=== PATIENT | female | born 1990 | race African-American/Black ===

== ENCOUNTER → 2016-09-27 | Outpatient (CLI) | payer OTHER ==
--- NOTE | 2016-09-27 09:28 | US ---
EXAMINATION TYPE: US abdomen complete DATE OF EXAM: 09/27/2016 9:09 AM COMPARISON: NONE CLINICAL HISTORY: US. Abdominal pain, GERD EXAM MEASUREMENTS: Liver Length: 15.4 cm Gallbladder Wall: 0.2 cm CBD: 0.4 cm Spleen: 9.0 cm Right Kidney: 11.2 x 4.0 x 5.7 cm Left Kidney: 10.5 x 4.3 x 5.2 cm ANATOMY: TECHNOLOGIST IMPRESSION: Limited due to bowel gas and patient body habitus. Pancreas: Obscured by bowel gas, portions visualized appear within normal limits Liver: Portions visualized appear within normal limits Gallbladder: Obscured by overlying bowel gas, portions visualized appear within normal limits Evidence for sonographic Patel's sign: no CBD: appear within normal limits Spleen: appear within normal limits Right Kidney: appear within normal limits Left Kidney: appear within normal limits Upper IVC: portions visualized appear within normal limits Abd Aorta: portions visualized appear within normal limits IMPRESSION: Limited study demonstrating no acute abnormality. Normal Values: Liver Length: < 16cm wnl, 17-18cm upper limits, >18cm enlarged Spleen Length = < 13cm Renal Length = 9 - 12cm GB Wall: < 0.3cm CBD: < 0.6cm or < 1.0cm post cholecystectomy
--- NOTE | 2016-09-27 10:11 | FL ---
EXAMINATION TYPE: FL UGI DATE OF EXAM ORDERED: 09/27/2016 9:53 AM HISTORY: Heartburn and reflux. COMPARISON: None. FINDINGS: Esophagus stent well aerated band without evidence of obstructing or constricting disease. There is no significant reflux. There is no evidence of hiatal hernia. Stomach contour is normal. There is no fixed filling defect or handy ulceration. The duodenal cap and sweep are normal. IMPRESSION: NORMAL AIR-CONTRAST UPPER GI SERIES.
== END | disposition home or self-care (01) ==
LOC: RADUSWWP 08:26
PROVIDERS: ATTEND Family Medicine
DX: R10.9 Unspecified abdominal pain (principal); K21.9 Gastro-esophageal reflux disease without esophagitis
CPT/HCPCS: 74240; 76700

== ENCOUNTER → 2016-11-15 | Outpatient (CLI) | payer OTHER ==
[2016-11-15 17:51] LABS: Appearance,CSF Clear
[2016-11-18 11:44] LABS: Lyme Specimen Source Not Provided
== END | disposition home or self-care (01) ==
LOC: LABWHC1 11:42
PROVIDERS: ATTEND Psychiatry & Neurology Pain Medicine
DX: R90.82 White matter disease, unspecified (principal); R42 Dizziness and giddiness; H53.8 Other visual disturbances
CPT/HCPCS: 36415; 82040; 82042; 82784; 83873; 83916; 84157; 87476; 88108; 89050

== ENCOUNTER → 2016-12-02 | Outpatient (CLI) | payer OTHER ==
[2016-12-02 08:06] LABS: Blood Urea Nitrogen 11 mg/dL (7-17); Non-African American GFR(MDRD) >60 (>60 ml/min/1.73 sqM)
--- NOTE | 2016-12-02 08:52 | MR ---
EXAMINATION TYPE: MR lumbar spine wo con DATE OF EXAM: 12/02/2016 8:43 AM COMPARISON: NONE HISTORY: Lumbago TECHNIQUE: T1 and T2 axial and sagittal images of the lumbar spine are submitted. FINDINGS: There is no abnormal signal seen within the visualized spinal cord or paraspinal soft tissu es. Tiny left adrenal nodule likely related to incidental adenoma. At L1-2 there is no disc herniation, degenerative disc disease, canal stenosis, or foraminal encroach ment. At L2-3 there is no disc herniation, degenerative disc disease, canal stenosis, or foraminal encroach ment. At L3-4 there is no disc herniation, degenerative disc disease, canal stenosis, or foraminal encroach ment. At L4-5 there is disc desiccation broad-based central disc protrusion with mild effacement of thecal sac. No foraminal encroachment. At L5-S1 there is no disc herniation, degenerative disc disease, canal stenosis, or foraminal encroac hment. IMPRESSION: 1. Central disc protrusion with mild effacement of thecal sac at L4-L5. No foraminal encroachment.
--- NOTE | 2016-12-02 15:21 | MR ---
MRI of the brain with and without contrast HISTORY: Headaches. TECHNIQUE: T1-weighted sagittal, T2, FLAIR, and diffusion axial, postcontrast T1 axial and coronal vi ews of the brain are submitted. CONTRAST: 20 mL MultiHance COMPARISON: 01/22/2016 FINDINGS: There is no evidence of acute ischemia. The ventricles, basal cisterns, and sulci overlying the co nvexities are consistent with the patient's age. There is no mass effect or enhancing mass. Craniocervical junction maintained. Sella turcica has a normal appearance. No evidence of cerebellopo ntine angle mass. Changes of chronic sinusitis noted. WHITE MATTER: There are 3 less than 5 mm areas of abnormal signal within the white matter. No lesions perpendicular to the ventricular system. No callosal lesions. No enhancing lesions. IMPRESSION: 1. No acute intracranial process. 2. Minimal nonspecific white matter changes can be seen with migraine headaches. Other etiologies inc luding demyelinating process, sarcoidosis, remote microvascular ischemia not entirely excluded.
== END | disposition home or self-care (01) ==
LOC: RADMRIMAIN 07:39
PROVIDERS: ATTEND Nurse Practitioner Acute Care
DX: R90.82 White matter disease, unspecified (principal); M51.26 Other intervertebral disc displacement, lumbar region; M54.5 Low back pain; R42 Dizziness and giddiness
CPT/HCPCS: 82565; 84520; 70553; 72148; A9577

== ENCOUNTER → 2016-12-15 | Outpatient (CLI) | payer OTHER ==
--- NOTE | 2016-12-15 11:55 | XR ---
EXAMINATION TYPE: XR knee complete bilateral DATE OF EXAM ORDERED: 12/15/2016 11:48 AM HISTORY: M25.561/2 knee pain. COMPARISON: None. FINDINGS: Joint spaces are maintained. There is no chondrocalcinosis. No joint effusions are seen. IMPRESSION: NORMAL BILATERAL KNEES.
== END ==
LOC: RADXRMAIN 11:30
PROVIDERS: ATTEND Psychiatry & Neurology Pain Medicine
DX: M25.561 Pain in right knee (principal); M25.562 Pain in left knee

== ENCOUNTER → 2017-10-08 | Outpatient (CLI) | payer OTHER ==
--- NOTE | 2017-10-08 23:37 | MR ---
EXAMINATION TYPE: MR brain wo/w con DATE OF EXAM: 10/08/2017 COMPARISON: 12/02/2016 HISTORY: Weakness TECHNIQUE: Multiplanar, multisequence images of the brain and brainstem is performed without and with IV contras t, utilizing 10 mL intravenous Gadavist . FINDINGS: Ventricles and sulci appear fairly normal. There is no mass effect nor midline shift. There is no sig n of intracranial hemorrhage. The burton and white matter structures have fairly normal signal pattern. There is no evidence of cerebral edema. There are however 3 tiny foci of 3 mm increased signal in the white matter of the left frontal lobe. Brainstem appears normal. Corpus callosum is normal. Sella turcica is normal. There is no evidence of a cortical infarct. Contrast images show no pathologic enhancement. There is no evidence of a chicken sexer ior fossa mass. IMPRESSION: 3 tiny foci of white matter increased signal are unchanged compared to old exam and are o f uncertain and doubtful significance. I do not see evidence for demyelinating disease. Otherwise neg ative exam.
== END | disposition home or self-care (01) ==
LOC: RADMRIMAIN 19:18
PROVIDERS: ATTEND Psychiatry & Neurology Neurology
DX: R90.82 White matter disease, unspecified (principal); Z88.2 Allergy status to sulfonamides; Z88.1 Allergy status to other antibiotic agents
CPT/HCPCS: 70553; A9581

== ENCOUNTER → 2017-10-15 | Outpatient (CLI) | payer OTHER ==
--- NOTE | 2017-10-15 12:29 | US ---
EXAMINATION TYPE: US transvaginal DATE OF EXAM: 10/15/2017 COMPARISON: NONE CLINICAL HISTORY: N94.6 DYSMENORRHEA. Patient states having left side pain, History of right and left side ectopic with right fallopian tube removed TECHNIQUE: Transvaginal (TV) Date of LMP: 09/26/2017, EXAM MEASUREMENTS: Uterus: 8.1 x 4.5 x 4.1 cm Endometrial Stripe: 0.8 cm Right Ovary: 2.4 x 1.7 x 1.5 cm Left Ovary: 3.3 x 2.5 x 2.5 cm 1. Uterus: Anteflexed wnl 2. Endometrium: fluid seen within endometrial canal 3. Right Ovary: follicles seen 4. Left Ovary: complex lesion seen with peripheral vascularity = 2.0 x 1.7 x 1.9 cm Color doppler imaging shows good vascular flow within the ovaries; there is no evidence for ovarian torsion. 5. Bilateral Adnexa: fluid seen adjacent to left ovary 6. Posterior cul-de-sac: free fluid seen IMPRESSION: 1. Complex left ovarian lesion with peripheral vascularity. Small amount of free fluid noted. Clinica l correlation and appropriate follow-up is advised.
== END | disposition home or self-care (01) ==
LOC: RADUSWWP 11:00
PROVIDERS: ATTEND Obstetrics & Gynecology
DX: N83.9 Noninflammatory disorder of ovary, fallopian tube and broad ligament, unspecified (principal)
CPT/HCPCS: 76830

== ENCOUNTER → 2017-12-05 | Outpatient (CLI) | payer OTHER ==
[2017-12-05 18:33] LABS: Total Protein,CSF 33 mg/dL (12-60)
[2017-12-05 19:59] LABS: CSF Tube Number 4
[2017-12-05 20:00] LABS: Appearance,CSF Clear; CSF Tube Volume 2; Nucleated Cells, CSF 1 u/L (0-5); Red Blood Cell,CSF 0 u/L (0-10)
== END | disposition home or self-care (01) ==
LOC: LABWHC1 10:05
PROVIDERS: ATTEND Physician Assistant
DX: R51 Headache (principal); R42 Dizziness and giddiness; R90.82 White matter disease, unspecified
CPT/HCPCS: 36415; 82040; 82042; 82784; 83873; 83916; 84157; 87476; 89050

== ENCOUNTER 2018-01-29 12:19 | Day surgery (SDC) | payer OTHER ==
[2018-01-23 16:19] VITALS: BMI 38.9
[~2018-01-29 12:19] MED LIST: SODIUM CHLORIDE 0.9% 1,000 ML IV SCH
[2018-01-29] MEDS ORDERED: SODIUM CHLORIDE 0.9% 250 ML IV ONE (12:30)
[2018-01-29 16:28] VITALS: BP 122/76; RESP 16; TEMP 98.2
[2018-01-29 16:30] VITALS: PULSE 78
--- NOTE | 2018-01-29 16:49 | P.PCN ---
Preoperative Diagnosis: History of recurrent syncope twelve-lead ECG Sinus rhythm heart rate 86 beats a minute normal NH narrow QRS normal ST segments normal QT interval Tilt table test Baseline blood pressure 123/74 mmHg Baseline heart rate 82 beats a minute patient was tilted upright at an angle of 70 per impression there was no change in heart rate and blood pressure she complained of dizziness and feeling nauseous and extremely tired. There is no change in heart rate and blood pressure Impression Normal heart rate and blood pressure response to upright tilting No evidence for neurocardiogenic syncope Anesthesia: none Disposition: same day
== END 2018-01-29 15:00 | disposition home or self-care (01) ==
LOC: CATHEP 12:19
PROVIDERS: ATTEND Internal Medicine Clinical Cardiac Electrophysiology
DX: R55 Syncope and collapse (principal); R07.2 Precordial pain; Z88.1 Allergy status to other antibiotic agents; Z88.0 Allergy status to penicillin; Z88.2 Allergy status to sulfonamides
CPT/HCPCS: 81025; 93660

== ENCOUNTER 2018-01-31 06:59 | Day surgery (SDC) | payer OTHER ==
[2018-01-28 15:48] VITALS: BMI 37.3
[~2018-01-31 06:59] MED LIST changes: +CLINDAMYCIN 900 MG in DEXTROSE 5% IN WATER 50 ML IVPB ONE; +DEXAMETHASONE SOD PHOSPHATE 10 MG/ML 1 ML VIAL IV ONE; +HEPARIN SODIUM,PORCINE 5,000 UNIT/ML 1 ML VIAL SQ ONE; +LACTATED RINGERS 1,000 ML IV SCH; +MIDAZOLAM 2 MG/2 ML VIAL IV PRN; +MORPHINE SULFATE 4 MG/ML SYRINGE IV PRN; +ONDANSETRON ODT 4 MG TAB PO ONE; -SODIUM CHLORIDE 0.9% 1,000 ML IV SCH
[2018-01-31] MEDS ORDERED: LIDOCAINE 1% 20 ML VIAL (10MG/ML) FOR IV START INTRADERMA ONE (07:46)
[2018-01-31 07:54] LABS: Glucose,Whole Blood 92 mg/dL (75-99)
[2018-01-31] MEDS ORDERED: LIDOCAINE 1% INJ 10MG/ML (20 ML MDV) ONE (08:35)
[2018-01-31] MEDS ORDERED: ROPIVACAINE 5 MG/ML 30 ML VIAL ONE (08:35)
[2018-01-31] MEDS ORDERED: KETOROLAC 30 MG/ML 1 ML VIAL ONE (08:35)
[2018-01-31] MEDS ORDERED: PROPOFOL 10 MG/ML 20 ML VIAL IV ONE (08:35)
[2018-01-31] MEDS ORDERED: GLYCOPYRROLATE 0.2 MG/ML 2 ML VIAL ONE (08:35)
[2018-01-31] MEDS ORDERED: SUCCINYLCHOLINE CHLORIDE 100 MG/5 ML SYR IV ONE (08:35)
[2018-01-31] MEDS ORDERED: fentaNYL (PF) 50 MCG/ML 2 ML AMP ONE (08:35)
[2018-01-31] MEDS ORDERED: ROCURONIUM BROMIDE 10 MG/ML 10 ML VIAL IV ONE (08:35)
[2018-01-31] MEDS ORDERED: LIDOCAINE 2%-EPI 1:100,000 20 ML VIAL ONE (08:35)
[2018-01-31] MEDS ORDERED: NEOSTIGMINE 1 MG/ML 10 ML VIAL ONE (08:35)
[2018-01-31] MEDS ORDERED: MIDAZOLAM 2 MG/2 ML VIAL ONE (08:35)
[2018-01-31] MEDS ORDERED: LIDOCAINE 2%-EPI 1:100,000 20 ML VIAL SQ ONE ×2 (08:53)
[2018-01-31] MEDS ORDERED: BUPIVACAINE (PF) 0.25% 30 ML VIAL SQ ONE ×2 (08:53)
--- NOTE | 2018-01-31 09:03 | P.ONQ ---
Anesthesiology Proc Note - PNB - Peripheral Nerve Block Performed Bilateral Transversus Abdominis Single Time Out Performed: Yes (809) Procedure Start Time: 08:10 Procedure Stop Time: :20 Indication: Acute Post-Operative Pain, Dx/Pain Location (Abdominal Pain), Requested by physician Sedation Type: Awake Catheter: None Needle Types: On-Q Needle Size: 100mm (4") Needle Gauge: 21 Injectate: Other (see comment) (40ml 0.25% Ropivacaine, 20ml each side) Blood Aspirated: No Pain Paresthesia on Injection Noted: No Resistance on Injection: Normal Events: Uneventful and Well Tolerated
--- NOTE | 2018-01-31 09:12 | P.OP ---
Date of Procedure: 01/31/18 Preoperative Diagnosis: Umbilical hernia Postoperative Diagnosis: Lipoma Procedure(s) Performed: Abdominal wall exploration with removal of lipoma Anesthesia: PAPA Surgeon: Suyapa Coy Estimated Blood Loss (ml): 5 Pathology: other (Lipoma) Condition: stable Disposition: PACU Indications for Procedure: The patient presented with abdominal pain a CT showed what appeared to be incarcerated preperitoneal fat was some fat edema. Operative Findings: There was no evidence of any abdominal wall hernia. There was a 1 cm lipoma, this was the palpable tender area the patient was feeling. Description of Procedure: The patient's taken the operative suite where she is prepped and draped in the usual sterile manner under general endotracheal anesthetic local anesthetic is instilled into the skin and subcutaneous tissues and infraumbilical incision was made small bleeding points are controlled with electrocautery dissection was carried down through the fatty tissue to the hard nodule the patient was describing. This appeared to be a simple lipoma with no extension through the fascia. It was removed. The fat overlying the fascia at the umbilicus was dissected free to allow for palpation. The abdominal wall was thoroughly palpated and there was no evidence of any hernia defects. The skin was then closed with 4-0 Vicryl in a subcuticular manner. Steri-Strips and dressings were applied. She tolerated the procedure without difficulty and was taken recovery room in satisfactory condition. According to or personnel, ARE correct. Plan - Discharge Summary New Discharge Prescriptions: No Action Hydrocodone/Acetaminophen [[place] 10-325] 1 tab PO DAILY PRN PRN Reason: Pain Hydrochlorothiazide [Hydrodiuril] 25 mg PO DAILY Eslicarbazepine Acetate [Aptiom] 400 mg PO BID Butalb/Acetaminophen/Caffeine [Fioricet 50-300-40 mg Capsule] 1 - 2 cap PO Q4HR PRN PRN Reason: Migraine Headache Beclomethasone Dipropionate [Qvar 80 mcg] 1 puff INHALATION DAILY PRN PRN Reason: Shortness Of Breath Discharge Medication List Hydrocodone/Acetaminophen [[place] 10-325] 1 tab PO DAILY PRN 01/12/16 [History] Beclomethasone Dipropionate [Qvar 80 mcg] 1 puff INHALATION DAILY PRN 01/23/18 [ History] Butalb/Acetaminophen/Caffeine [Fioricet 50-300-40 mg Capsule] 1 - 2 cap PO Q4HR PRN 01/23/18 [History] Eslicarbazepine Acetate [Aptiom] 400 mg PO BID 01/23/18 [History] Hydrochlorothiazide [Hydrodiuril] 25 mg PO DAILY 01/23/18 [History] Follow up Appointment(s)/Referral(s): Suyapa Coy DO [Doctor of Osteopathic Medicine] - 2 Weeks Activity/Diet/Wound Care/Special Instructions: Maintain this dressing until Sunday. This made then be removed and you may shower. A light dressing may be used over the incision and the incision is draining or rubbing on your clothing. Ice to the incision for 24 hours. No tub baths for 1 week. Remove the Steri-Strips (a little tapes) in 1 week. Tylenol or Motrin as needed for pain. Discharge Disposition: HOME SELF-CARE
[2018-01-31 09:29] VITALS: TEMP 96.9
[2018-01-31 09:42] LABS: Glucose,Whole Blood 99 mg/dL (75-99)
[2018-01-31 09:43] VITALS: RESP 16
[2018-01-31] MEDS ORDERED: IBUPROFEN 400 MG TAB PO STA (10:44)
[2018-01-31] MEDS ORDERED: IBUPROFEN 200 MG TAB PO ONE (10:44)
[2018-01-31 11:08] VITALS: BP 106/73; PULSE 78
== END 2018-01-31 11:31 | disposition home or self-care (01) ==
LOC: OR 06:59
PROVIDERS: ATTEND Surgery
DX: D17.1 Benign lipomatous neoplasm of skin and subcutaneous tissue of trunk (principal); J45.909 Unspecified asthma, uncomplicated; M19.90 Unspecified osteoarthritis, unspecified site; E11.9 Type 2 diabetes mellitus without complications; G40.909 Epilepsy, unspecified, not intractable, without status epilepticus; Z79.899 Other long term (current) drug therapy; Z88.1 Allergy status to other antibiotic agents; Z88.0 Allergy status to penicillin; Z88.2 Allergy status to sulfonamides; Z88.8 Allergy status to other drugs, medicaments and biological substances
CPT/HCPCS: 11401; 81025; 88302; 64488; J2250; J1644; J1100; J2710; J2001; J3010; J1885; J2795; J0330; J2704

== ENCOUNTER → 2018-02-07 | Outpatient (CLI) | payer OTHER ==
--- NOTE | 2018-02-07 17:16 | XR ---
EXAMINATION TYPE: XR ribs LT w pa chest xray DATE OF EXAM: 02/07/2018 CLINICAL HISTORY: Pain after fall TECHNIQUE: Single frontal view of the chest is obtained. Frontal and oblique views of the left ribs w ere obtained. COMPARISON: None FINDINGS: There is no focal air space opacity, pleural effusion, or pneumothorax seen. The cardiac silhouette size is within normal limits. There is no displaced acute rib fracture or healed callused rib fracture identified. IMPRESSION: No acute cardiopulmonary process. No evidence of pneumothorax. No acute displaced rib fr acture or healed callused rib fracture.
== END | disposition home or self-care (01) ==
LOC: RADXRMAIN 16:48
PROVIDERS: ATTEND Family Medicine
DX: R07.81 Pleurodynia (principal); Z91.81 History of falling

== ENCOUNTER 2018-02-10 16:03 | Emergency (ER) | payer OTHER ==
[2018-02-10 16:08] VITALS: TEMP 97.7
[2018-02-10] MEDS ORDERED: KETOROLAC 30 MG/ML 1 ML VIAL IVP STA (16:41)
[2018-02-10] MEDS ORDERED: ONDANSETRON 4 MG/2 ML VIAL IVP STA (16:41)
[2018-02-10] MEDS ORDERED: SODIUM CHLORIDE 0.9% 1,000 ML IV STA ×2 (16:41)
--- NOTE | 2018-02-10 16:50 | ED ---
Abdominal Pain HPI - General Chief Complaint: Abdominal Pain Stated Complaint: back pain/near syncope Time Seen by Provider: 02/10/18 16:15 Source: patient, RN notes reviewed, old records reviewed Mode of arrival: ambulatory Limitations: no limitations - History of Present Illness Initial Comments: Patient is a 28 year old female with CC of right flank and abd pain.Patient reports she had umibilical hernia surgery 10 days ago, and they found "tissue" which was removed. Pt states she has had this flank pain since then. Patient also relates that she has been hacing dizziness, and a syncopal episode 3 days ago. She denies fevers and chills, reports having nausea vomiting, and diarrhea. - Related Data Home Medications Medication Instructions Recorded Confirmed Hydrocodone/Acetaminophen [[place] 1 tab PO DAILY PRN 01/12/16 02/16/18 10-325] Beclomethasone Dipropionate [Qvar 1 puff INHALATION DAILY PRN 01/23/18 02/16/18 80 mcg] Butalb/Acetaminophen/Caffeine 1 - 2 cap PO Q4HR PRN 01/23/18 02/16/18 [Fioricet 50-300-40 mg Capsule] Eslicarbazepine Acetate [Aptiom] 400 mg PO BID 01/23/18 02/16/18 Hydrochlorothiazide [Hydrodiuril] 25 mg PO DAILY PRN 01/23/18 02/16/18 Allergies Allergy/AdvReac Type Severity Reaction Status Date / Time acetazolamide Allergy Rash/Hives/CHEST Verified 02/16/18 11:00 [From Diamox Sequels] PAIN cephalexin monohydrate Allergy Rash/Hives Verified 02/16/18 11:00 [From Keflex] ciprofloxacin [From Cipro] Allergy Rash/Hives Verified 02/16/18 11:00 ciprofloxacin HCl Allergy Rash/Hives Verified 02/16/18 11:00 [From Cipro] nitrofurantoin Allergy Itching Verified 02/16/18 11:00 [From Macrobid] Penicillins Allergy Rash/Hives Verified 02/16/18 11:00 sulfamethoxazole Allergy Rash/Hives Verified 02/16/18 11:00 [From Bactrim] trimethoprim [From Bactrim] Allergy Rash/Hives Verified 02/16/18 11:00 Review of Systems ROS Statement: Those systems with pertinent positive or pertinent negative responses have been documented in the HPI. ROS Other: All systems not noted in ROS Statement are negative. Past Medical History Past Medical History: Asthma, CVA/TIA, Diabetes Mellitus, Seizure Disorder, Syncope Additional Past Medical History / Comment(s): HX MIGRAINES, "REDUCED SEIZURE THRESHOLD", UNSURE OF LAST SEIZURE, PSEUDO TUMOR CEREBRI, CHRONIC BACK PAIN, POSSIBLE UMBILICAL HERNIA, DIET CONTROLLED DIABETIC History of Any Multi-Drug Resistant Organisms: None Reported Past Surgical History: Section Additional Past Surgical History / Comment(s): tilt table test 01/29/18. right fallopian tube removed, LEFT FALLOPIAN TUBE CLAMPED,. "tissue" removed from abd Past Anesthesia/Blood Transfusion Reactions: Postoperative Nausea & Vomiting ( PONV) Additional Past Anesthesia/Blood Transfusion Reaction / Comment(s): STATES "TROUBLE WAKING UP" Past Psychological History: No Psychological Hx Reported Smoking Status: Never smoker - Past Family History Mother Family Medical History: No Reported History General Exam - General Exam Comments Initial Comments: Well appearing 28 year old female, no distress. Limitations: no limitations General appearance: alert, in no apparent distress Head exam: Present: atraumatic, normocephalic, normal inspection Eye exam: Present: normal appearance, PERRL, EOMI. Absent: scleral icterus, conjunctival injection, periorbital swelling ENT exam: Present: normal exam, mucous membranes moist Neck exam: Present: normal inspection. Absent: tenderness, meningismus, lymphadenopathy Respiratory exam: Present: normal lung sounds bilaterally. Absent: respiratory distress, wheezes, rales, rhonchi, stridor GI/Abdominal exam: Present: soft, normal bowel sounds, other (well appearing incisions over umbilicus). Absent: distended, tenderness, guarding, rebound, rigid Extremities exam: Present: normal inspection, full ROM, normal capillary refill. Absent: tenderness, pedal edema, joint swelling, calf tenderness Back exam: Present: normal inspection Neurological exam: Present: alert, oriented X3, CN II-XII intact Psychiatric exam: Present: normal affect, normal mood Skin exam: Present: warm, dry, intact, normal color. Absent: rash Course Vital Signs 02/10/18 02/10/18 02/10/18 16:04 18:49 19:30 Temperature 97.7 F Pulse Rate 75 68 92 Respiratory 18 20 16 Rate Blood Pressure 126/64 136/58 166/55 O2 Sat by Pulse 99 100 100 Oximetry Medical Decision Making - Medical Decision Making Patient is a 28 year old female with CC of right flank and abd pain.Patient reports she had umibilical hernia surgery 10 days ago, and they found "tissue" which was removed. Pt states she has had this flank pain since then. Patient also relates that she has been hacing dizziness, and a syncopal episode 3 days ago. Patient as given IV fluids, and labs obtained. Labs are unremarkable. Umbilical hernia site appears well, no significant tenderness there. She complains mainly of right sided flank pain. UA shows no significant infection. I discussed that CT shows no changes, but does report some end plate disease over L5. Discussed patient needs to follow up with surgeon and return parameters discussed. - Lab Data Result diagrams: 02/10/18 17:08 02/10/18 17:08 Lab Results 02/10/18 02/10/18 02/10/18 Range/Units 17:08 17:08 17:08 WBC 7.6 (3.8-10.6) k/uL RBC 4.81 (3.80-5.40) m/uL Hgb 12.4 (11.4-16.0) gm/dL Hct 38.4 (34.0-46.0) % MCV 79.9 L (80.0-100.0) fL MCH 25.8 (25.0-35.0) pg MCHC 32.3 (31.0-37.0) g/dL RDW 14.3 (11.5-15.5) % Plt Count 264 (150-450) k/uL Neutrophils % 79 % Lymphocytes % 17 % Monocytes % 2 % Eosinophils % 2 % Basophils % 0 % Neutrophils # 6.0 (1.3-7.7) k/uL Lymphocytes # 1.3 (1.0-4.8) k/uL Monocytes # 0.2 (0-1.0) k/uL Eosinophils # 0.1 (0-0.7) k/uL Basophils # 0.0 (0-0.2) k/uL PT (9.0-12.0) sec INR (<1.2) APTT (22.0-30.0) sec Sodium 142 (137-145) mmol/L Potassium 4.5 (3.5-5.1) mmol/L Chloride 105 (98-107) mmol/L Carbon Dioxide 23 (22-30) mmol/L Anion Gap 14 mmol/L BUN 7 (7-17) mg/dL Creatinine 0.50 L (0.52-1.04) mg/dL Est GFR (CKD-EPI)AfAm >90 (>60 ml/min/1.73 sqM) Est GFR (CKD-EPI)NonAf >90 (>60 ml/min/1.73 sqM) Glucose 114 H (74-99) mg/dL Plasma Lactic Acid Eran (0.7-2.0) mmol/L Calcium 9.5 (8.4-10.2) mg/dL Total Bilirubin 0.2 (0.2-1.3) mg/dL AST 22 (14-36) U/L ALT 27 (9-52) U/L Alkaline Phosphatase 95 (38-126) U/L Total Protein 6.8 (6.3-8.2) g/dL Albumin 3.9 (3.5-5.0) g/dL Amylase 56 (30-110) U/L Lipase 33 (23-300) U/L Urine Color Yellow Urine Appearance Cloudy H (Clear) Urine pH 5.5 (5.0-8.0) Ur Specific [place] 1.017 (1.001-1.035) Urine Protein Negative (Negative) Urine Glucose (UA) Negative (Negative) Urine Ketones Negative (Negative) Urine Blood Negative (Negative) Urine Nitrite Negative (Negative) Urine Bilirubin Negative (Negative) Urine Urobilinogen <2.0 (<2.0) mg/dL Ur Leukocyte Esterase Trace H (Negative) Urine RBC 1 (0-5) /hpf Urine WBC 15 H (0-5) /hpf Ur Squamous Epith Cells 7 H (0-4) /hpf Urine Mucus Few H (None) /hpf Urine HCG, Qual (Not Detectd) 02/10/18 02/10/18 02/10/18 Range/Units 17:08 17:08 17:08 WBC (3.8-10.6) k/uL RBC (3.80-5.40) m/uL Hgb (11.4-16.0) gm/dL Hct (34.0-46.0) % MCV (80.0-100.0) fL MCH (25.0-35.0) pg MCHC (31.0-37.0) g/dL RDW (11.5-15.5) % Plt Count (150-450) k/uL Neutrophils % % Lymphocytes % % Monocytes % % Eosinophils % % Basophils % % Neutrophils # (1.3-7.7) k/uL Lymphocytes # (1.0-4.8) k/uL Monocytes # (0-1.0) k/uL Eosinophils # (0-0.7) k/uL Basophils # (0-0.2) k/uL PT 9.7 (9.0-12.0) sec INR 1.0 (<1.2) APTT 24.4 (22.0-30.0) sec Sodium (137-145) mmol/L Potassium (3.5-5.1) mmol/L Chloride (98-107) mmol/L Carbon Dioxide (22-30) mmol/L Anion Gap mmol/L BUN (7-17) mg/dL Creatinine (0.52-1.04) mg/dL Est GFR (CKD-EPI)AfAm (>60 ml/min/1.73 sqM) Est GFR (CKD-EPI)NonAf (>60 ml/min/1.73 sqM) Glucose (74-99) mg/dL Plasma Lactic Acid Eran 1.3 (0.7-2.0) mmol/L Calcium (8.4-10.2) mg/dL Total Bilirubin (0.2-1.3) mg/dL AST (14-36) U/L ALT (9-52) U/L Alkaline Phosphatase (38-126) U/L Total Protein (6.3-8.2) g/dL Albumin (3.5-5.0) g/dL Amylase (30-110) U/L Lipase (23-300) U/L Urine Color Urine Appearance (Clear) Urine pH (5.0-8.0) Ur Specific [place] (1.001-1.035) Urine Protein (Negative) Urine Glucose (UA) (Negative) Urine Ketones (Negative) Urine Blood (Negative) Urine Nitrite (Negative) Urine Bilirubin (Negative) Urine Urobilinogen (<2.0) mg/dL Ur Leukocyte Esterase (Negative) Urine RBC (0-5) /hpf Urine WBC (0-5) /hpf Ur Squamous Epith Cells (0-4) /hpf Urine Mucus (None) /hpf Urine HCG, Qual Not Detected (Not Detectd) - Radiology Data Radiology results: report reviewed Mild soft tissue thickening and minimal festering and umbilicus likely postsurgical change. No abdominal fluid collection. No noted at L5 have a sacralization and mid disc endplate degenerative changes. Correlate for bertolotti syndrome. Disposition Clinical Impression: Abdominal pain, Nausea, Diarrhea Disposition: HOME SELF-CARE Condition: Good Additional Instructions: Patient has a follow-up with primary care provider. Return to emergency department if any alarming signs or symptoms occur. Take her at home pain medication. Is patient prescribed a controlled substance at d/c from ED?: No When asked, does pt state using other controlled substances?: No If prescribed controlled substance>3 days was MAPS reviewed?: No Referrals: Susu Horner MD [Primary Care Provider] - 1-2 days Time of Disposition: 20:11
[2018-02-10 17:30] LABS: Basophils % (A) 0 %; Eosinophils # (A) 0.1 k/uL (0-0.7); Eosinophils % (A) 2 %; HCT 38.4 % (34.0-46.0); HGB 12.4 gm/dL (11.4-16.0); Lymphocytes # (A) 1.3 k/uL (1.0-4.8); Lymphocytes % (A) 17 %; MCH 25.8 pg (25.0-35.0); MCHC 32.3 g/dL (31.0-37.0); MCV 79.9 fL (80.0-100.0); Mean Platelet Volume 7.2; Monocytes # (A) 0.2 k/uL (0-1.0); Monocytes % (A) 2 %; Neutrophils % (A) 79 %; Platelet Count 264 k/uL (150-450); RBC 4.81 m/uL (3.80-5.40); RDW 14.3 % (11.5-15.5); WBC 7.6 k/uL (3.8-10.6)
[2018-02-10 17:34] LABS: Partial Thromboplastin Time 24.4 sec (22.0-30.0); Prothrombin Time 9.7 sec (9.0-12.0)
[2018-02-10 17:38] LABS: Appearance,Urine Cloudy (Clear); Bilirubin,Urine Negative (Negative); Blood,Urine Negative (Negative); Color,Urine Yellow; Glucose,Urine (UA) Negative (Negative); Ketones,Urine Negative (Negative); Leukocyte Esterase,Urine Trace (Negative); Mucus,Urine Few /hpf; Nitrite,Urine Negative (Negative); PH, Urine 5.5 (5.0-8.0); Protein,Urine Negative (Negative); RBC,Urine 1 /hpf (0-5); Specific Gravity,Urine 1.017 (1.001-1.035); Squamous Epithelial Cell,Urine 7 /hpf (0-4); Urobilinogen,Urine <2.0 mg/dL (<2.0); WBC,Urine 15 /hpf (0-5)
[2018-02-10 17:43] LABS: ALT 27 U/L (9-52); AST 22 U/L (14-36); Albumin 3.9 g/dL (3.5-5.0); Alkaline Phosphatase 95 U/L (38-126); Amylase 56 U/L (30-110); Anion Gap 14 mmol/L; Blood Urea Nitrogen 7 mg/dL (7-17); Calcium 9.5 mg/dL (8.4-10.2); Carbon Dioxide 23 mmol/L (22-30); Chloride 105 mmol/L (98-107); Glucose 114 mg/dL (74-99); Lipase 33 U/L (23-300); Potassium 4.5 mmol/L (3.5-5.1); Sodium 142 mmol/L (137-145); Total Bilirubin 0.2 mg/dL (0.2-1.3); Total Protein 6.8 g/dL (6.3-8.2)
--- NOTE | 2018-02-10 17:55 | XR ---
EXAMINATION TYPE: XR KUB DATE OF EXAM: 02/10/2018 CLINICAL DATA: 27-year-old female with abdominal pain, [facility] COMPARISON: 04/06/2011 FINDINGS: Lung bases are clear. No evidence for free intraperitoneal air. No dilated small bowel or air-fluid levels. Scattered air and stool seen throughout the colon extendi ng distally into the rectum. Only mild stool in the pelvis. Phleboliths in the right side of the pelvis. IMPRESSION: No evidence of bowel obstruction or free intraperitoneal air.
[2018-02-10] MEDS ORDERED: RX INFO: IV CONTRAST WAS GIVEN 1 EACH MISC MISCELLANE PRN (18:15)
[2018-02-10] MEDS ORDERED: MORPHINE SULFATE 4 MG/ML SYRINGE IVP STA (18:19)
--- NOTE | 2018-02-10 19:02 | CT ---
EXAMINATION TYPE: CT abdomen pelvis w con DATE OF EXAM: 02/10/2018 COMPARISON: NONE HISTORY: 27-year-old female Back pain, S/P umbilical surgery TECHNIQUE: Contiguous axial scanning of the abdomen and pelvis following administration of 100 ml Omn ipaque 300 IV contrast. Delayed images through the kidneys and coronal/sagittal reconstructions perf ormed. CT DLP: 1300.9 mGycm Automated exposure control for dose reduction was used. FINDINGS: Heart is normal size without pericardial effusion. Lung bases clear without pleural effusion. Liver upper limits of normal in size at 17.2 cm. No focal liver lesion or biliary ductal dilatation. Portal venous system is patent. Gallbladder, adrenal glands, kidneys, spleen, and pancreas appear within normal limits. No dilated small bowel, free fluid, or free air. Scattered nonenlarged mesenteric lymph nodes are pre sent. Normal appendix containing some inspissated material and air. Some stool is present at the appendicea l base. Moderate stool in the cecum. No significant stool burden elsewhere in the colon. No pericolonic infla mmatory change. There is some soft tissue thickening and minimal fat stranding at the umbilicus. Uterus and both ovaries are visualized. There is a 4.0 cm dominant follicle or functional cyst in the right ovary. Trace pelvic free fluid anterior to the uterus. Bones: Left L5 hemisacralization with mild degenerative disc disease at L4-L5. No osseous destructive process. IMPRESSION: 1. MILD SOFT TISSUE THICKENING AND MINIMAL FAT STRANDING AT THE UMBILICUS LIKELY POSTSURGICAL CHANGE RELATED TO RECENT OPERATION. NO ABNORMAL FLUID COLLECTION. 2. NOTE LEFT L5 HEMISACRALIZATION AND MILD DISC/ENDPLATE DEGENERATIVE CHANGE ABOVE AT L4-L5. CORRELAT E FOR BERTOLOTTI'S SYNDROME.
[2018-02-10 19:51] VITALS: BP 166/55; PULSE 92; RESP 16
== END 2018-02-10 20:31 | disposition home or self-care (01) ==
LOC: EC 16:03
DX: R10.9 Unspecified abdominal pain (principal); R11.2 Nausea with vomiting, unspecified; R19.7 Diarrhea, unspecified; J45.909 Unspecified asthma, uncomplicated; G40.909 Epilepsy, unspecified, not intractable, without status epilepticus; Z86.73 Personal history of transient ischemic attack (TIA), and cerebral infarction without residual deficits; Z90.79 Acquired absence of other genital organ(s); Z98.890 Other specified postprocedural states; Z79.899 Other long term (current) drug therapy; Z88.1 Allergy status to other antibiotic agents; Z88.0 Allergy status to penicillin; Z88.2 Allergy status to sulfonamides; Z88.8 Allergy status to other drugs, medicaments and biological substances
CPT/HCPCS: 99285; 96374; 96375 ×2; 96361 ×3; 36415; 80053; 82150; 83605; 83690; 85025; 85610; 85730; 81001; 81025; 87040; 74018; 74177; J2270; J2405; J1885; Q9967

== ENCOUNTER 2018-02-16 10:55 | Emergency (ER) | payer OTHER ==
[2018-02-16] MEDS ORDERED: SODIUM CHLORIDE 0.9% 2,000 ML IV STA (11:36)
[2018-02-16] MEDS ORDERED: ONDANSETRON 4 MG/2 ML VIAL IVP STA (11:36)
[2018-02-16 12:34] LABS: Basophils % (A) 0 %; Eosinophils % (A) 1 %; HCT 37.7 % (34.0-46.0); HGB 12.4 gm/dL (11.4-16.0); Lymphocytes # (A) 1.4 k/uL (1.0-4.8); Lymphocytes % (A) 21 %; MCH 26.4 pg (25.0-35.0); MCHC 32.9 g/dL (31.0-37.0); MCV 80.3 fL (80.0-100.0); Mean Platelet Volume 6.7; Monocytes # (A) 0.1 k/uL (0-1.0); Monocytes % (A) 2 %; Neutrophils # (A) 4.9 k/uL (1.3-7.7); Neutrophils % (A) 75 %; Platelet Count 298 k/uL (150-450); RBC 4.69 m/uL (3.80-5.40); RDW 14.2 % (11.5-15.5); WBC 6.6 k/uL (3.8-10.6)
[2018-02-16 12:37] LABS: Appearance,Urine Clear (Clear); Bilirubin,Urine Negative (Negative); Blood,Urine Negative (Negative); Color,Urine Yellow; Glucose,Urine (UA) Negative (Negative); Ketones,Urine Trace (Negative); Leukocyte Esterase,Urine Trace (Negative); Mucus,Urine Moderate /hpf; Nitrite,Urine Negative (Negative); Protein,Urine Trace (Negative); RBC,Urine <1 /hpf (0-5); Squamous Epithelial Cell,Urine 2 /hpf (0-4); Urobilinogen,Urine <2.0 mg/dL (<2.0); WBC,Urine 4 /hpf (0-5)
[2018-02-16 12:49] LABS: ALT 22 U/L (9-52); AST 17 U/L (14-36); Alkaline Phosphatase 88 U/L (38-126); Anion Gap 11 mmol/L; Blood Urea Nitrogen 8 mg/dL (7-17); Calcium 9.1 mg/dL (8.4-10.2); Carbon Dioxide 23 mmol/L (22-30); Chloride 106 mmol/L (98-107); Glucose 108 mg/dL (74-99); Potassium 4.5 mmol/L (3.5-5.1); Sodium 140 mmol/L (137-145); Total Bilirubin 0.1 mg/dL (0.2-1.3); Total Protein 6.7 g/dL (6.3-8.2)
--- NOTE | 2018-02-16 13:22 | XR ---
EXAMINATION TYPE: XR chest 2V DATE OF EXAM: 02/16/2018 COMPARISON: 02/07/2018 HISTORY: Abdominal pain and vomiting for 2 weeks chest pain. TECHNIQUE: Frontal and lateral views of the chest are obtained. FINDINGS: There is no focal air space opacity, pleural effusion, or pneumothorax seen. The cardiac silhouette size is within normal limits. The osseous structures are intact. IMPRESSION: No acute cardiopulmonary process.
--- NOTE | 2018-02-16 13:24 | XR ---
EXAMINATION TYPE: XR KUB DATE OF EXAM: 02/16/2018 1:14 PM CLINICAL HISTORY: Abdominal pain and vomiting for 2 weeks TECHNIQUE: Single upright KUB image of the abdomen is obtained. COMPARISON: 02/10/2018. FINDINGS: Scattered gas is seen in non-distended small bowel loops. Gas and fecal material is seen in non-distended colon. There is no visceromegaly, pneumoperitoneum, or abnormal calcification apprecia franchesca. Normal variant Rachel's lobe of the liver is incidentally seen. The lung bases are clear and the osseous structures are intact. IMPRESSION: Nonobstructive bowel gas pattern.
--- NOTE | 2018-02-16 13:38 | ED ---
General Adult HPI - General Chief complaint: Nausea/Vomiting/Diarrhea Stated complaint: syncope, diarrhea, back pain, vomiting Time Seen by Provider: 02/16/18 11:21 Source: patient Mode of arrival: wheelchair Limitations: no limitations - History of Present Illness Initial comments: 28 years old lady comes in with the nausea and vomiting since 80 8 AM today she passed out in the bathroom her children were with her she said she didn't fall she didn't hit her head there is no injury from the fall she was seen in the ER with abdominal pain on February [address] of the abdomen done which was unremarkable head CT at that point she felt that she is given a pass out today she passed out for 1-2 minutes she said. Denies any palpitation no chest pain no shortness of breath does have back pain she vomited about 8 times in she had the 8 bowel movements today she has this pain in the left lower quadrant of the abdomen off and on for a week now she was seen here with the same pain and the CT of the abdomen was normal and did show some defect at the L5 and S1 level in the lumbar spine. Review of system is unremarkable otherwise - Related Data Home Medications Medication Instructions Recorded Confirmed Hydrocodone/Acetaminophen [[place] 1 tab PO DAILY PRN 01/12/16 02/16/18 10-325] Beclomethasone Dipropionate [[place] 1 puff INHALATION DAILY PRN 01/23/18 02/16/18 80 mcg] Butalb/Acetaminophen/Caffeine 1 - 2 cap PO Q4HR PRN 01/23/18 02/16/18 [Fioricet 50-300-40 mg Capsule] Eslicarbazepine Acetate [Aptiom] 400 mg PO BID 01/23/18 02/16/18 Hydrochlorothiazide [Hydrodiuril] 25 mg PO DAILY PRN 01/23/18 02/16/18 Allergies Allergy/AdvReac Type Severity Reaction Status Date / Time acetazolamide Allergy Rash/Hives/CHEST Verified 02/16/18 11:00 [From Diamox Sequels] PAIN cephalexin monohydrate Allergy Rash/Hives Verified 02/16/18 11:00 [From Keflex] ciprofloxacin [From Cipro] Allergy Rash/Hives Verified 02/16/18 11:00 ciprofloxacin HCl Allergy Rash/Hives Verified 02/16/18 11:00 [From Cipro] nitrofurantoin Allergy Itching Verified 02/16/18 11:00 [From Macrobid] Penicillins Allergy Rash/Hives Verified 02/16/18 11:00 sulfamethoxazole Allergy Rash/Hives Verified 02/16/18 11:00 [From Bactrim] trimethoprim [From Bactrim] Allergy Rash/Hives Verified 02/16/18 11:00 Review of Systems ROS Statement: Those systems with pertinent positive or pertinent negative responses have been documented in the HPI. ROS Other: All systems not noted in ROS Statement are negative. Past Medical History Past Medical History: Asthma, CVA/TIA, Diabetes Mellitus, Seizure Disorder, Syncope Additional Past Medical History / Comment(s): HX MIGRAINES, "REDUCED SEIZURE THRESHOLD", PSEUDO TUMOR CEREBRI, CHRONIC BACK PAIN, POSSIBLE UMBILICAL HERNIA , bertolotti sydrome History of Any Multi-Drug Resistant Organisms: None Reported Past Surgical History: Section Additional Past Surgical History / Comment(s): tilt table test 01/29/18. right fallopian tube removed, LEFT FALLOPIAN TUBE CLAMPED,. "tissue" removed from abd Past Anesthesia/Blood Transfusion Reactions: Postoperative Nausea & Vomiting ( PONV) Additional Past Anesthesia/Blood Transfusion Reaction / Comment(s): STATES "TROUBLE WAKING UP" Past Psychological History: No Psychological Hx Reported Smoking Status: Never smoker Past Alcohol Use History: None Reported Past Drug Use History: None Reported - Past Family History Mother Family Medical History: No Reported History General Exam - General Exam Comments Initial Comments: General: The patient is awake and alert, in no distress, and does not appear acutely ill. GCS is 15 Skin: Skin is warm and dry and no rashes or lesions are noted. Eye: Pupils are equal, round and reactive to light, extra-ocular movements are intact; there is normal conjunctiva bilaterally. Ears, nose, mouth and throat: There are moist mucous membranes and no oral lesions. Neck: The neck is supple, there is no tenderness or JVD. Cardiovascular: There is a regular rate and rhythm. No murmur, rub or gallop is appreciated. Respiratory: To auscultation bilateral, no wheezing no rhonchi no distress respiratory macias noticed Gastrointestinal: Area of focal tenderness noticed in the abdomen, positive bowel sounds no guarding no rebounds Back: There is tenderness noticed in the L5 and S1 area Musculoskeletal: Normal ROM, no tenderness, There is no pedal edema. There is no calf tenderness or swelling. No cords were appreciated. Neurological: CN II-XII intact, Cranial nerves III through XII are intact. There are no obvious motor or sensory deficits. Coordination appears grossly intact. Speech is normal. Psychiatric: Cooperative, appropriate mood & affect, normal judgment. Limitations: no limitations Course Vital Signs 02/16/18 02/16/18 10:57 13:45 Temperature 98.9 F Pulse Rate 81 Pulse Rate [ 72 Right Sitting] Pulse Rate [ 78 Right Standing] Pulse Rate [ 83 Right Supine] Respiratory 18 16 Rate Blood Pressure 113/56 Blood Pressure 103/61 [Left Arm Sitting] Blood Pressure 106/56 [Left Arm Standing] Blood Pressure 107/54 [Left Arm Supine] O2 Sat by Pulse 99 100 Oximetry She is reassessed at term 1850 she is feeling a lot better orthostatic blood pressure was checked is within normal range there is no significant BP drop with standing upright liver kidneys electrolytes and CBC are all within normal range she was monitored and didn't notice any significant tachycardia or bradycardia to explain her passing out hiking she got dehydrated with the 8 emesis 8 times emesis and 8 loose stools she was advised to drink some Gatorade mother is no suspicion of C. difficile she is not on antibiotics this just started today and no other family member close contact has a diarrhea will follow with her family doctor or return to ER if symptoms get worse. CT abdomen done on now February 10 was observed here was within normal range except some finding in the lower back, syncope seem some secondary to orthostatic Hypotension secondary to hypovolemia, Medical Decision Making - Lab Data Result diagrams: 02/16/18 12:15 02/16/18 12:15 Lab Results 02/16/18 02/16/18 02/16/18 Range/Units 12:15 12:15 12:15 WBC 6.6 (3.8-10.6) k/uL RBC 4.69 (3.80-5.40) m/uL Hgb 12.4 (11.4-16.0) gm/dL Hct 37.7 (34.0-46.0) % MCV 80.3 (80.0-100.0) fL MCH 26.4 (25.0-35.0) pg MCHC 32.9 (31.0-37.0) g/dL RDW 14.2 (11.5-15.5) % Plt Count 298 (150-450) k/uL Neutrophils % 75 % Lymphocytes % 21 % Monocytes % 2 % Eosinophils % 1 % Basophils % 0 % Neutrophils # 4.9 (1.3-7.7) k/uL Lymphocytes # 1.4 (1.0-4.8) k/uL Monocytes # 0.1 (0-1.0) k/uL Eosinophils # 0.0 (0-0.7) k/uL Basophils # 0.0 (0-0.2) k/uL Sodium 140 (137-145) mmol/L Potassium 4.5 (3.5-5.1) mmol/L Chloride 106 (98-107) mmol/L Carbon Dioxide 23 (22-30) mmol/L Anion Gap 11 mmol/L BUN 8 (7-17) mg/dL Creatinine 0.50 L (0.52-1.04) mg/dL Est GFR (CKD-EPI)AfAm >90 (>60 ml/min/1.73 sqM) Est GFR (CKD-EPI)NonAf >90 (>60 ml/min/1.73 sqM) Glucose 108 H (74-99) mg/dL Calcium 9.1 (8.4-10.2) mg/dL Total Bilirubin 0.1 L (0.2-1.3) mg/dL AST 17 (14-36) U/L ALT 22 (9-52) U/L Alkaline Phosphatase 88 (38-126) U/L Total Protein 6.7 (6.3-8.2) g/dL Albumin 4.0 (3.5-5.0) g/dL Urine Color Urine Appearance (Clear) Urine pH (5.0-8.0) Ur Specific [place] (1.001-1.035) Urine Protein (Negative) Urine Glucose (UA) (Negative) Urine Ketones (Negative) Urine Blood (Negative) Urine Nitrite (Negative) Urine Bilirubin (Negative) Urine Urobilinogen (<2.0) mg/dL Ur Leukocyte Esterase (Negative) Urine RBC (0-5) /hpf Urine WBC (0-5) /hpf Ur Squamous Epith Cells (0-4) /hpf Urine Mucus (None) /hpf Urine HCG, Qual Not Detected (Not Detectd) 02/16/18 Range/Units 12:15 WBC (3.8-10.6) k/uL RBC (3.80-5.40) m/uL Hgb (11.4-16.0) gm/dL Hct (34.0-46.0) % MCV (80.0-100.0) fL MCH (25.0-35.0) pg MCHC (31.0-37.0) g/dL RDW (11.5-15.5) % Plt Count (150-450) k/uL Neutrophils % % Lymphocytes % % Monocytes % % Eosinophils % % Basophils % % Neutrophils # (1.3-7.7) k/uL Lymphocytes # (1.0-4.8) k/uL Monocytes # (0-1.0) k/uL Eosinophils # (0-0.7) k/uL Basophils # (0-0.2) k/uL Sodium (137-145) mmol/L Potassium (3.5-5.1) mmol/L Chloride (98-107) mmol/L Carbon Dioxide (22-30) mmol/L Anion Gap mmol/L BUN (7-17) mg/dL Creatinine (0.52-1.04) mg/dL Est GFR (CKD-EPI)AfAm (>60 ml/min/1.73 sqM) Est GFR (CKD-EPI)NonAf (>60 ml/min/1.73 sqM) Glucose (74-99) mg/dL Calcium (8.4-10.2) mg/dL Total Bilirubin (0.2-1.3) mg/dL AST (14-36) U/L ALT (9-52) U/L Alkaline Phosphatase (38-126) U/L Total Protein (6.3-8.2) g/dL Albumin (3.5-5.0) g/dL Urine Color Yellow Urine Appearance Clear (Clear) Urine pH 6.0 (5.0-8.0) Ur Specific [place] 1.030 (1.001-1.035) Urine Protein Trace H (Negative) Urine Glucose (UA) Negative (Negative) Urine Ketones Trace H (Negative) Urine Blood Negative (Negative) Urine Nitrite Negative (Negative) Urine Bilirubin Negative (Negative) Urine Urobilinogen <2.0 (<2.0) mg/dL Ur Leukocyte Esterase Trace H (Negative) Urine RBC <1 (0-5) /hpf Urine WBC 4 (0-5) /hpf Ur Squamous Epith Cells 2 (0-4) /hpf Urine Mucus Moderate H (None) /hpf Urine HCG, Qual (Not Detectd) Disposition Clinical Impression: Nausea and vomiting, Syncope Disposition: HOME SELF-CARE Condition: Good Instructions: Acute Nausea and Vomiting (ED) Is patient prescribed a controlled substance at d/c from ED?: No When asked, does pt state using other controlled substances?: No If prescribed controlled substance>3 days was MAPS reviewed?: No Referrals: Susu Horner MD [Primary Care Provider] - 1-2 days
[2018-02-16 13:46] VITALS: RESP 16
[2018-02-16 14:22] VITALS: BP 113/64; PULSE 74; TEMP 98.4
== END 2018-02-16 14:27 | disposition home or self-care (01) ==
LOC: EC 10:55
DX: R11.2 Nausea with vomiting, unspecified (principal); R55 Syncope and collapse; R10.32 Left lower quadrant pain; M54.9 Dorsalgia, unspecified; J45.909 Unspecified asthma, uncomplicated; G40.909 Epilepsy, unspecified, not intractable, without status epilepticus; Z86.73 Personal history of transient ischemic attack (TIA), and cerebral infarction without residual deficits; Z79.899 Other long term (current) drug therapy; Z88.1 Allergy status to other antibiotic agents; Z88.0 Allergy status to penicillin; Z88.2 Allergy status to sulfonamides; Z88.8 Allergy status to other drugs, medicaments and biological substances
CPT/HCPCS: 36415; 80053; 85025; 81001; 81025; 71046; 74018; 99284; 96374; 96361 ×2; J2405

== ENCOUNTER → 2018-06-17 | Outpatient (CLI) | payer OTHER ==
[2018-06-19 13:52] LABS: IgG - CSF 2.3 mg/dL (0.0 - 3.4); IgG/Albumin Index (CSF) 0.56 (0.00 - 0.77)
== END | disposition home or self-care (01) ==
LOC: LABWHC1 12:50
PROVIDERS: ATTEND Psychiatry & Neurology Pain Medicine
DX: H53.8 Other visual disturbances (principal); R51 Headache; R42 Dizziness and giddiness
CPT/HCPCS: 36415; 82040; 82042; 82784; 83916

== ENCOUNTER 2018-12-13 08:32 | Emergency (ER) | payer OTHER ==
[2018-12-13] MEDS ORDERED: ACETAMINOPHEN TAB 500 MG TAB PO STA (09:02)
[2018-12-13] MEDS ORDERED: IPRATROPIUM-ALBUTEROL 3 ML NEB INHALATION STA (09:03)
--- NOTE | 2018-12-13 09:22 | ED ---
General Adult HPI - General Chief complaint: Fever Stated complaint: fever Time Seen by Provider: 12/13/18 08:49 Source: patient, RN notes reviewed Mode of arrival: ambulatory Limitations: no limitations - History of Present Illness Initial comments: 28-year-old female presents to the emergency department for a chief complaint of cough 3 days. Patient states she has had a productive cough. Patient does have a history of asthma and has a inhaler at home but states she does not usually get steroids for her cough. Patient does admit to mild shortness of breath. Patient states she also has had the chills and body aches. She admits to minimal congestion as well. Patient has no other complaints at this time including chest pain, abdominal pain, nausea or vomiting, headache, or visual changes. - Related Data Home Medications Medication Instructions Recorded Confirmed Hydrocodone/Acetaminophen [[place] 1 tab PO DAILY PRN 01/12/16 12/13/18 10-325] Eslicarbazepine Acetate [Aptiom] 400 mg PO BID 01/23/18 12/13/18 Hydrochlorothiazide [Hydrodiuril] 25 mg PO DAILY PRN 01/23/18 12/13/18 Previous Rx's Medication Instructions Recorded predniSONE 50 mg PO DAILY #5 tablet 12/13/18 Allergies Allergy/AdvReac Type Severity Reaction Status Date / Time acetazolamide Allergy Rash/Hives/CHEST Verified 12/13/18 08:51 [From Diamox Sequels] PAIN cephalexin monohydrate Allergy Rash/Hives Verified 12/13/18 08:51 [From Keflex] ciprofloxacin [From Cipro] Allergy Rash/Hives Verified 12/13/18 08:51 ciprofloxacin HCl Allergy Rash/Hives Verified 12/13/18 08:51 [From Cipro] Penicillins Allergy Rash/Hives Verified 12/13/18 08:51 sulfamethoxazole Allergy Rash/Hives Verified 12/13/18 08:51 [From Bactrim] trimethoprim [From Bactrim] Allergy Rash/Hives Verified 12/13/18 08:51 Review of Systems ROS Statement: Those systems with pertinent positive or pertinent negative responses have been documented in the HPI. ROS Other: All systems not noted in ROS Statement are negative. Past Medical History Past Medical History: Asthma, CVA/TIA, Diabetes Mellitus, Seizure Disorder, Syncope Additional Past Medical History / Comment(s): HX MIGRAINES, "REDUCED SEIZURE THRESHOLD", PSEUDO TUMOR CEREBRI, CHRONIC BACK PAIN, POSSIBLE UMBILICAL HERNIA, bertolotti sydrome History of Any Multi-Drug Resistant Organisms: None Reported Past Surgical History: Section Additional Past Surgical History / Comment(s): tilt table test 01/29/18. right fallopian tube removed, LEFT FALLOPIAN TUBE CLAMPED,. "tissue" removed from abd Past Anesthesia/Blood Transfusion Reactions: Postoperative Nausea & Vomiting (PONV) Additional Past Anesthesia/Blood Transfusion Reaction / Comment(s): STATES "TROUBLE WAKING UP" Past Psychological History: No Psychological Hx Reported Smoking Status: Never smoker - Past Family History Mother Family Medical History: No Reported History General Exam Limitations: no limitations General appearance: alert, in no apparent distress Head exam: Present: atraumatic, normocephalic, normal inspection Eye exam: Present: normal appearance, PERRL, EOMI. Absent: scleral icterus, conjunctival injection, periorbital swelling ENT exam: Present: normal exam, mucous membranes moist Neck exam: Present: normal inspection, full ROM. Absent: tenderness, meningismus, lymphadenopathy Respiratory exam: Present: decreased breath sounds (diminished bilat). Absent: respiratory distress, wheezes, rales, rhonchi, stridor Cardiovascular Exam: Present: regular rate, normal rhythm, normal heart sounds. Absent: systolic murmur, diastolic murmur, rubs, gallop, clicks Neurological exam: Present: alert, oriented X3, CN II-XII intact Psychiatric exam: Present: normal affect, normal mood Course Vital Signs 12/13/18 12/13/18 12/13/18 08:41 09:09 09:26 Temperature 102.7 F H Pulse Rate 120 H 108 H 108 H Respiratory 18 Rate Blood Pressure 121/65 O2 Sat by Pulse 100 Oximetry 12/13/18 12/13/18 12/13/18 10:27 11:23 11:29 Temperature 100.3 F H Pulse Rate 124 H 111 H 107 H Respiratory 20 Rate Blood Pressure 132/82 O2 Sat by Pulse 98 Oximetry Medical Decision Making - Medical Decision Making 28-year-old female presents for cough and fever 3 days. Patient is 100% on room air with a temperature of 102.7. Patient is tachycardic with a pulse rate of 120, likely secondary to fever. Patient given Tylenol and Motrin. Exam is unremarkable. Chest x-ray shows no acute infiltrate or change from prior. Influenza A is positive, as patient has had symptoms for greater than 72 hours she will not be treated with Tamiflu. However given patient's history of asthma patient was given albuterol treatment as well as steroids. She has an inhaler at home. On reevaluation patient is well-appearing. Ready to go home. Besides for tachycardia increase noted after breathing treatment, heart rate did improve to 107 after Motrin and Tylenol administered. She will follow up with primary care and return if she has any worsening symptoms. Discussed hydration therapy and strict return parameters. - Lab Data Lab Results 12/13/18 12/13/18 12/13/18 Range/Units 09:05 09:05 09:05 Urine Color Yellow Urine Appearance Clear (Clear) Urine pH 7.5 (5.0-8.0) Ur Specific [place] 1.016 (1.001-1.035) Urine Protein Trace H (Negative) Urine Glucose (UA) Negative (Negative) Urine Ketones Negative (Negative) Urine Blood Negative (Negative) Urine Nitrite Negative (Negative) Urine Bilirubin Negative (Negative) Urine Urobilinogen <2.0 (<2.0) mg/dL Ur Leukocyte Esterase Negative (Negative) Urine HCG, Qual Not Detected (Not Detectd) Influenza Type A RNA Detected H (Not Detectd) Influenza Type B (PCR) Not Detected (Not Detectd) Disposition Clinical Impression: Influenza Disposition: HOME SELF-CARE Condition: Good Instructions (If sedation given, give patient instructions): Fever in Adults (ED), Influenza (ED) Additional Instructions: Please follow up with primary care in 1-2 days. Take Motrin and Tylenol for fever. Take steroids as directed. Return here if you have any worsening symptoms. Prescriptions: predniSONE 50 mg PO DAILY #5 tablet Is patient prescribed a controlled substance at d/c from ED?: No Referrals: Susu Horner MD [Primary Care Provider] - 1-2 days Time of Disposition: 11:06
[2018-12-13 09:23] LABS: Appearance,Urine Clear (Clear); Bilirubin,Urine Negative (Negative); Blood,Urine Negative (Negative); Color,Urine Yellow; Glucose,Urine (UA) Negative (Negative); Ketones,Urine Negative (Negative); Leukocyte Esterase,Urine Negative (Negative); Nitrite,Urine Negative (Negative); PH, Urine 7.5 (5.0-8.0); Protein,Urine Trace (Negative); Specific Gravity,Urine 1.016 (1.001-1.035); Urobilinogen,Urine <2.0 mg/dL (<2.0)
--- NOTE | 2018-12-13 09:46 | XR ---
EXAMINATION TYPE: XR chest 2V DATE OF EXAM: 12/13/2018 COMPARISON: Chest x-ray February 16, 2018. HISTORY: Cough and fever for 2 days. TECHNIQUE: Frontal and lateral views of the chest are obtained. FINDINGS: There is no focal air space opacity, pleural effusion, or pneumothorax seen. The cardiac silhouette size is within normal limits. The osseous structures are intact. Bilateral metallic nipp le ornaments redemonstrated. IMPRESSION: No suspicious acute infiltrate. No significant change from prior.
[2018-12-13] MEDS ORDERED: IBUPROFEN 600 MG TAB PO STA (10:08)
[2018-12-13 11:32] VITALS: BP 132/82; PULSE 107; RESP 20; TEMP 100.3
== END 2018-12-13 11:32 | disposition home or self-care (01) ==
LOC: EC 08:32
DX: J10.1 Influenza due to other identified influenza virus with other respiratory manifestations (principal); R00.0 Tachycardia, unspecified; G40.909 Epilepsy, unspecified, not intractable, without status epilepticus; Z87.09 Personal history of other diseases of the respiratory system; Z86.73 Personal history of transient ischemic attack (TIA), and cerebral infarction without residual deficits; Z79.899 Other long term (current) drug therapy; Z88.8 Allergy status to other drugs, medicaments and biological substances; Z88.1 Allergy status to other antibiotic agents; Z88.0 Allergy status to penicillin; Z88.2 Allergy status to sulfonamides
CPT/HCPCS: 71046; 81003; 81025; 87502; 94640; 99284

== ENCOUNTER → 2019-07-04 | Outpatient (CLI) | payer OTHER ==
[2019-07-04 19:04] LABS: Anti-DNA, DS unit <1.0 IU/mL; Anti-Smith Ab Interp NEGATIVE (NEGATIVE); Cyclic Citrull Pep IgG Unit <0.5 U/mL; Cyclic Citrullinated Pep IgG NEGATIVE (NEGATIVE); DNA Double-Stranded NEGATIVE (NEGATIVE); Scleroderma SC-70 Ab <0.2 AI
== END | disposition home or self-care (01) ==
LOC: LABWHC1 13:51
PROVIDERS: ATTEND Psychiatry & Neurology Pain Medicine
DX: M25.50 Pain in unspecified joint (principal)
CPT/HCPCS: 36415; 83516; 86038; 86200; 86225; 86235

== ENCOUNTER → 2019-08-12 | Outpatient (CLI) | payer OTHER ==
[2019-08-12 16:12] LABS: Basophils % (A) 0 %; Eosinophils # (A) 0.1 k/uL (0-0.7); Eosinophils % (A) 1 %; HCT 35.2 % (34.0-46.0); HGB 11.6 gm/dL (11.4-16.0); Lymphocytes % (A) 44 %; MCH 27.7 pg (25.0-35.0); Mean Platelet Volume 6.2; Monocytes # (A) 0.3 k/uL (0-1.0); Monocytes % (A) 4 %; Neutrophils # (A) 3.3 k/uL (1.3-7.7); Neutrophils % (A) 49 %; Platelet Count 304 k/uL (150-450); RBC 4.19 m/uL (3.80-5.40); RDW 13.6 % (11.5-15.5); WBC 6.8 k/uL (3.8-10.6)
[2019-08-13 00:31] LABS: % Iron Saturation 16.54 (12.00-45.00); African American GFR (CKD) 143.8 (60.0-200.0); Albumin 4.3 g/dL (3.80-4.90); Albumin/Globulin Ratio 2.15 (1.60-3.17); Anion Gap 5.9 mmol/L (4.00-12.00); Calcium 9.1 mg/dL (8.7-10.3); Carbon Dioxide 28.1 mmol/L (21.6-31.8); Total Bilirubin 0.2 mg/dL (0.2-1.2); Total Protein 6.3 g/dL (6.2-8.2)
[2019-08-13 00:38] LABS: Ferritin 200.2 ng/mL (10.0-291.0)
== END | disposition home or self-care (01) ==
LOC: LABWHC1 15:21
PROVIDERS: ATTEND Psychiatry & Neurology Pain Medicine
DX: D64.9 Anemia, unspecified (principal)
CPT/HCPCS: 36415; 80053; 82607; 82668; 82728; 82746; 83540; 83550; 84439; 84443; 84481; 85025; 85045

== ENCOUNTER → 2020-02-10 | Outpatient (CLI) | payer OTHER ==
[2020-02-10 11:53] LABS: Basophils % (A) 0 %; Eosinophils # (A) 0.1 k/uL (0-0.7); Eosinophils % (A) 1 %; HCT 40.3 % (34.0-46.0); HGB 12.8 gm/dL (11.4-16.0); Lymphocytes # (A) 2.4 k/uL (1.0-4.8); Lymphocytes % (A) 33 %; MCH 26.5 pg (25.0-35.0); MCHC 31.7 g/dL (31.0-37.0); MCV 83.8 fL (80.0-100.0); Mean Platelet Volume 7.8; Monocytes # (A) 0.3 k/uL (0-1.0); Monocytes % (A) 4 %; Neutrophils # (A) 4.4 k/uL (1.3-7.7); Neutrophils % (A) 60 %; Platelet Count 316 k/uL (150-450); RBC 4.82 m/uL (3.80-5.40); RDW 14.4 % (11.5-15.5); WBC 7.3 k/uL (3.8-10.6)
[2020-02-10 12:48] LABS: Erythrocyte Sedimentation Rate 28 mm/hr (0-20)
[2020-02-10 18:50] LABS: African American GFR (CKD) 143.8 (60.0-200.0); Albumin 4.5 g/dL (3.80-4.90); Albumin/Globulin Ratio 1.8 (1.60-3.17); Anion Gap 11.6 mmol/L (4.00-12.00); C Reactive Protein 2.3 mg/dL (0.0-0.8); Calcium 9.6 mg/dL (8.7-10.3); Carbon Dioxide 26.4 mmol/L (21.6-31.8); Globulin 2.5 g/dL (1.6-3.3); Potassium 4.8 mmol/L (3.5-5.5); Total Bilirubin 0.3 mg/dL (0.3-1.2)
[2020-02-10 19:36] LABS: Cardiolipin Ab IgG Interp NEGATIVE (NEGATIVE); Cardiolipin Ab IgM Interp NEGATIVE (NEGATIVE); Cardiolipin IgA Antibody <0.5 U/mL; Cardiolipin IgM Antibody <0.2 U/mL; Cyclic Citrull Pep IgG Unit <0.5 U/mL; Cyclic Citrullinated Pep IgG NEGATIVE (NEGATIVE)
[2020-02-10 21:02] LABS: Appearance,CSF Clear; CSF Tube Number 4; CSF Tube Volume 2.5; Nucleated Cells, CSF 2 u/L (0-5); Red Blood Cell,CSF 0 u/L (0-10)
[2020-02-10 21:03] LABS: Total Protein,CSF 30 mg/dL (12-60)
[2020-02-11 13:43] LABS: APTT 40 Sec(s) (<43); DRVVT 1:1 Mix 42 Sec(s) (<44); Dilute Russell Viper Venom 50 Sec(s) (<44)
[2020-02-12 12:50] LABS: IgG - CSF 1.9 mg/dL (0.0 - 3.4); IgG/Albumin Index (CSF) 0.46 (0.00 - 0.77)
== END | disposition home or self-care (01) ==
LOC: LABWHC1 10:38
PROVIDERS: ATTEND Psychiatry & Neurology Pain Medicine
DX: M25.50 Pain in unspecified joint (principal); R53.82 Chronic fatigue, unspecified; R90.82 White matter disease, unspecified; R20.8 Other disturbances of skin sensation; R42 Dizziness and giddiness; R51 Headache; Z86.73 Personal history of transient ischemic attack (TIA), and cerebral infarction without residual deficits
CPT/HCPCS: 36415; 80053; 82040; 82042; 82306; 82784; 83873; 83916; 84157; 85025; 85613; 85652; 85730; 86038; 86140; 86146; 86147; 86200; 86431; 87801; 88108; 89050

== ENCOUNTER → 2020-02-23 | Outpatient (CLI) | payer OTHER ==
--- NOTE | 2020-02-24 10:23 | XR ---
EXAMINATION TYPE: XR shoulder limited bilateral DATE OF EXAM: 02/23/2020 CLINICAL HISTORY: Chronic bilateral shoulder pain with no known injury TECHNIQUE: Three views of the bilateral shoulders were obtained. COMPARISON: 04/17/2012 FINDINGS: There is no acute fracture/dislocation evident in either shoulder. The acromioclavicular and glenohumeral joint spaces appear within normal limits. The visualized ribs are intact and unrema rkable. IMPRESSION: There is no acute fracture or dislocation in either shoulder. No radiographic sequela of arthropathy.
--- NOTE | 2020-02-24 10:29 | XR ---
EXAMINATION TYPE: XR hand complete bilateral DATE OF EXAM: 02/23/2020 CLINICAL HISTORY: Chronic bilateral finger pain with no known injury. TECHNIQUE: Frontal, lateral and oblique images of the bilateral hands were obtained. COMPARISON: None. FINDINGS: There is no acute fracture/dislocation evident in either hand. Very small radial sided ost eophytes are seen of the second, fourth, and fifth distal phalanges of the left hand as well as the s econd through fourth proximal aspect of the distal phalanges of the right hand. The remaining joint s paces in the bilateral hands appear within normal limits. Old fracture deformity of the base of the p roximal second middle phalanx on the right is questioned on the lateral view only. The overlying soft tissue appears unremarkable. IMPRESSION: 1. No acute fracture or dislocation in either hand. 2. Very minimal degenerative change of the distal interphalangeal joints bilaterally, typically seen in early osteoarthritis.
== END | disposition home or self-care (01) ==
LOC: RADXRMAIN 15:55
PROVIDERS: ATTEND Internal Medicine Rheumatology
DX: M19.041 Primary osteoarthritis, right hand (principal); M25.511 Pain in right shoulder; M79.642 Pain in left hand; M79.641 Pain in right hand; M25.50 Pain in unspecified joint

== ENCOUNTER 2020-07-10 14:47 | Emergency (ER) | payer OTHER ==
[2020-07-10 15:00] VITALS: TEMP 99.1
[2020-07-10 15:56] LABS: Appearance,Urine Cloudy (Clear); Bilirubin,Urine Negative (Negative); Blood,Urine Negative (Negative); Budding Yeast,Urine Rare /hpf; Color,Urine Light Yellow; Glucose,Urine (UA) 3+ (Negative); Ketones,Urine Negative (Negative); Leukocyte Esterase,Urine Moderate (Negative); Mucus,Urine Rare /hpf; Nitrite,Urine Negative (Negative); Protein,Urine Negative (Negative); RBC,Urine 4 /hpf (0-5); Specific Gravity,Urine 1.019 (1.001-1.035); Sperm,Urine Occasional /hpf; Squamous Epithelial Cell,Urine 8 /hpf (0-4); Urobilinogen,Urine <2.0 mg/dL (<2.0); WBC,Urine 12 /hpf (0-5)
[2020-07-10 16:12] LABS: ALT 29 U/L (4-34); AST 41 U/L (14-36); African American GFR (CKD) >90 (>60 ml/min/1.73 sqM); Albumin 4.2 g/dL (3.5-5.0); Alkaline Phosphatase 101 U/L (38-126); Anion Gap 6 mmol/L; Blood Urea Nitrogen 7 mg/dL (7-17); Calcium 8.6 mg/dL (8.4-10.2); Carbon Dioxide 24 mmol/L (22-30); Chloride 109 mmol/L (98-107); Glucose 94 mg/dL (74-99); Non-African American GFR(CKD) >90 (>60 ml/min/1.73 sqM); Sodium 139 mmol/L (137-145); Total Bilirubin 0.3 mg/dL (0.2-1.3); Total Protein 7.1 g/dL (6.3-8.2)
[2020-07-10 16:16] LABS: HCT 40.9 % (34.0-46.0); HGB 12.9 gm/dL (11.4-16.0); MCH 26.8 pg (25.0-35.0); MCHC 31.6 g/dL (31.0-37.0); Mean Platelet Volume 7.5; Platelet Count 263 k/uL (150-450); RBC 4.81 m/uL (3.80-5.40); RDW 14.9 % (11.5-15.5); WBC 2.9 k/uL (3.8-10.6)
[2020-07-10] MEDS ORDERED: FLUCONAZOLE 150 MG TAB PO STA (16:58)
--- NOTE | 2020-07-10 17:14 | ED ---
General Adult HPI - General Chief complaint: Weakness Stated complaint: not feeling well Time Seen by Provider: 07/10/20 15:00 Source: patient Mode of arrival: ambulatory Limitations: no limitations - History of Present Illness Initial comments: The patient is a 30-year-old female with past medical history of CVA, diabetes, seizure disorder who presents to the emergency room with reported body aches and nausea. States that she spent the last week in [place] on vacation. States that while she was there she began feeling tired. She has been trying to drink emergency and Gatorade to keep herself hydrated. Reports that the symptoms have been present since Sunday. She denies any fevers or chills. No headaches or visual changes. No neck stiffness. Admits to a mild nonproductive cough. No shortness of breath. Denies any abdominal pain. No changes in her bowel or bladder habits. No concern for . She does receive a dental injection. States that she has had some itching and burning in her vaginal region which is usually consistent with a yeast infection. Also states she frequently gets bacterial vaginosis. Denies any abnormal vaginal bleeding or discharge at this time. Denies concern for sexually transmitted infections and is refusing testing. Denies any sick contacts with similar symptoms. No other alleviating, precipitating or modifying factors - Related Data Home Medications Medication Instructions Recorded Confirmed Hydrocodone/Acetaminophen [[place] 1 tab PO DAILY PRN 01/12/16 03/07/19 10-325] Eslicarbazepine Acetate [Aptiom] 400 mg PO BID 01/23/18 03/07/19 hydroCHLOROthiazide [Hydrodiuril] 25 mg PO DAILY PRN 01/23/18 03/07/19 Butalb/Acetaminophen/Caffeine 1 tab PO TID PRN 02/28/19 03/07/19 [Esgic 50-325-40 Capsule] Ergocalciferol (Vitamin D2) 50,000 unit PO DIRECTED 02/28/19 03/07/19 [Vitamin D2] Ferrous Sulfate [Iron] 325 mg PO DAILY 02/28/19 03/07/19 Galcanezumab-Gnlm [Emgality 120 mg SQ DIRECTED PRN 02/28/19 03/07/19 Syringe] Pnv No.95/Ferrous Fum/Folic AC 1 tab PO DAILY 02/28/19 03/07/19 [ Multivitamin Tablet] Previous Rx's Medication Instructions Recorded Fluconazole [Diflucan] 150 mg PO ONCE #1 tab 07/10/20 metroNIDAZOLE [Flagyl] 500 mg PO BID #14 tab 07/10/20 Allergies Allergy/AdvReac Type Severity Reaction Status Date / Time acetazolamide Allergy Rash/Hives/CHEST Verified 07/10/20 15:00 [From Diamox Sequels] PAIN cephalexin monohydrate Allergy Rash/Hives Verified 07/10/20 15:00 [From Keflex] ciprofloxacin [From Cipro] Allergy Rash/Hives Verified 07/10/20 15:00 ciprofloxacin HCl Allergy Rash/Hives Verified 07/10/20 15:00 [From Cipro] Penicillins Allergy Rash/Hives Verified 07/10/20 15:00 sulfamethoxazole Allergy Rash/Hives Verified 07/10/20 15:00 [From Bactrim] trimethoprim [From Bactrim] Allergy Rash/Hives Verified 07/10/20 15:00 Review of Systems ROS Statement: Those systems with pertinent positive or pertinent negative responses have been documented in the HPI. ROS Other: All systems not noted in ROS Statement are negative. Past Medical History Past Medical History: Asthma, Blood Disorder, CVA/TIA, Diabetes Mellitus, Seizure Disorder, Syncope Additional Past Medical History / Comment(s): HX MIGRAINES, "REDUCED SEIZURE THRESHOLD", PSEUDO TUMOR CEREBRI, CHRONIC BACK PAIN, POSSIBLE UMBILICAL HERNIA, bertolotti sydrome. IRON MICROCYTIC ANEMIA. History of Any Multi-Drug Resistant Organisms: None Reported Past Surgical History: Section Additional Past Surgical History / Comment(s): tilt table test 01/29/18. right fallopian tube removed, LEFT FALLOPIAN TUBE CLAMPED,. "tissue" removed from abd Past Anesthesia/Blood Transfusion Reactions: Postoperative Nausea & Vomiting (PONV) Additional Past Anesthesia/Blood Transfusion Reaction / Comment(s): STATES "TROUBLE WAKING UP" Past Psychological History: No Psychological Hx Reported Past Alcohol Use History: None Reported Past Drug Use History: None Reported - Past Family History Mother Family Medical History: No Reported History General Exam Limitations: no limitations General appearance: alert, in no apparent distress Head exam: Present: atraumatic, normocephalic, normal inspection Eye exam: Present: normal appearance, PERRL, EOMI. Absent: scleral icterus, conjunctival injection, periorbital swelling ENT exam: Present: normal exam, mucous membranes moist Neck exam: Present: normal inspection. Absent: tenderness, meningismus, lymphadenopathy Respiratory exam: Present: normal lung sounds bilaterally. Absent: respiratory distress, wheezes, rales, rhonchi, stridor Cardiovascular Exam: Present: regular rate, normal rhythm, normal heart sounds. Absent: systolic murmur, diastolic murmur, rubs, gallop, clicks GI/Abdominal exam: Present: soft, normal bowel sounds. Absent: distended, tenderness, guarding, rebound, rigid Extremities exam: Present: normal inspection, full ROM, normal capillary refill. Absent: tenderness, pedal edema, joint swelling, calf tenderness Back exam: Present: normal inspection Neurological exam: Present: alert, oriented X3, CN II-XII intact Psychiatric exam: Present: normal affect, normal mood Skin exam: Present: warm, dry, intact, normal color. Absent: rash Course Vital Signs 07/10/20 07/10/20 14:56 17:35 Temperature 99.1 F 99.1 F Pulse Rate 93 98 Respiratory 20 18 Rate Blood Pressure 161/99 158/96 O2 Sat by Pulse 100 100 Oximetry Medical Decision Making - Medical Decision Making Upon return of the patient's placed into room 22. A thorough history and physical exam was performed. Because of the vague symptoms I did recommend laboratory studies. Patient does agree to Covid and influenza testing. Laboratory studies returned and are normal. UA is positive for rare budding yeast. Influenza A and B are negative. Patient is notified the results of her covid will come back within the next 24-48 hours. We will call her with positive results. I discussed diagnosis, differential and treatment options. Patient's lungs are clear. No signs of respiratory distress. Patient is tolerating oral intake. At this time the patient will be discharged home and is to follow-up with the primary care physician. I encouraged fluid intake. Return to the emergency room for any new or worsening symptoms. Patient was discharged home in stable condition - Lab Data Result diagrams: 07/10/20 15:39 07/10/20 15:39 Lab Results 07/10/20 07/10/20 07/10/20 Range/Units 15:39 15:39 15:39 WBC 2.9 L (3.8-10.6) k/uL RBC 4.81 (3.80-5.40) m/uL Hgb 12.9 (11.4-16.0) gm/dL Hct 40.9 (34.0-46.0) % MCV 85.0 (80.0-100.0) fL MCH 26.8 (25.0-35.0) pg MCHC 31.6 (31.0-37.0) g/dL RDW 14.9 (11.5-15.5) % Plt Count 263 (150-450) k/uL Neutrophils % (Manual) 21 % Band Neuts % (Manual) 1 % Lymphocytes % (Manual) 58 % Monocytes % (Manual) 20 % Neutrophils # (Manual) 0.60 L (1.3-7.7) k/uL Lymphocytes # (Manual) 1.68 (1.0-4.8) k/uL Monocytes # (Manual) 0.58 (0-1.0) k/uL Nucleated RBCs 0 (0-0) /100 WBC Manual Slide Review Performed Sodium (137-145) mmol/L Potassium (3.5-5.1) mmol/L Chloride (98-107) mmol/L Carbon Dioxide (22-30) mmol/L Anion Gap mmol/L BUN (7-17) mg/dL Creatinine (0.52-1.04) mg/dL Est GFR (CKD-EPI)AfAm (>60 ml/min/1.73 sqM) Est GFR (CKD-EPI)NonAf (>60 ml/min/1.73 sqM) Glucose (74-99) mg/dL Calcium (8.4-10.2) mg/dL Total Bilirubin (0.2-1.3) mg/dL AST (14-36) U/L ALT (4-34) U/L Alkaline Phosphatase (38-126) U/L Total Protein (6.3-8.2) g/dL Albumin (3.5-5.0) g/dL Urine Color Light Yellow Urine Appearance Cloudy H (Clear) Urine pH 7.0 (5.0-8.0) Ur Specific [place] 1.019 (1.001-1.035) Urine Protein Negative (Negative) Urine Glucose (UA) 3+ H (Negative) Urine Ketones Negative (Negative) Urine Blood Negative (Negative) Urine Nitrite Negative (Negative) Urine Bilirubin Negative (Negative) Urine Urobilinogen <2.0 (<2.0) mg/dL Ur Leukocyte Esterase Moderate H (Negative) Urine RBC 4 (0-5) /hpf Urine WBC 12 H (0-5) /hpf Ur Squamous Epith Cells 8 H (0-4) /hpf Urine Mucus Rare H (None) /hpf Urine Yeast (Budding) Rare H (None) /hpf Urine Sperm Occasional H (None) /hpf Urine HCG, Qual Not Detected (Not Detectd) Coronavirus (PCR) (Not Detected) Influenza Type A RNA (Not Detectd) Influenza Type B (PCR) (Not Detectd) 07/10/20 07/10/20 07/10/20 Range/Units 15:39 15:39 15:39 WBC (3.8-10.6) k/uL RBC (3.80-5.40) m/uL Hgb (11.4-16.0) gm/dL Hct (34.0-46.0) % MCV (80.0-100.0) fL MCH (25.0-35.0) pg MCHC (31.0-37.0) g/dL RDW (11.5-15.5) % Plt Count (150-450) k/uL Neutrophils % (Manual) % Band Neuts % (Manual) % Lymphocytes % (Manual) % Monocytes % (Manual) % Neutrophils # (Manual) (1.3-7.7) k/uL Lymphocytes # (Manual) (1.0-4.8) k/uL Monocytes # (Manual) (0-1.0) k/uL Nucleated RBCs (0-0) /100 WBC Manual Slide Review Sodium 139 (137-145) mmol/L Potassium 4.0 (3.5-5.1) mmol/L Chloride 109 H (98-107) mmol/L Carbon Dioxide 24 (22-30) mmol/L Anion Gap 6 mmol/L BUN 7 (7-17) mg/dL Creatinine 0.53 (0.52-1.04) mg/dL Est GFR (CKD-EPI)AfAm >90 (>60 ml/min/1.73 sqM) Est GFR (CKD-EPI)NonAf >90 (>60 ml/min/1.73 sqM) Glucose 94 (74-99) mg/dL Calcium 8.6 (8.4-10.2) mg/dL Total Bilirubin 0.3 (0.2-1.3) mg/dL AST 41 H (14-36) U/L ALT 29 (4-34) U/L Alkaline Phosphatase 101 (38-126) U/L Total Protein 7.1 (6.3-8.2) g/dL Albumin 4.2 (3.5-5.0) g/dL Urine Color Urine Appearance (Clear) Urine pH (5.0-8.0) Ur Specific [place] (1.001-1.035) Urine Protein (Negative) Urine Glucose (UA) (Negative) Urine Ketones (Negative) Urine Blood (Negative) Urine Nitrite (Negative) Urine Bilirubin (Negative) Urine Urobilinogen (<2.0) mg/dL Ur Leukocyte Esterase (Negative) Urine RBC (0-5) /hpf Urine WBC (0-5) /hpf Ur Squamous Epith Cells (0-4) /hpf Urine Mucus (None) /hpf Urine Yeast (Budding) (None) /hpf Urine Sperm (None) /hpf Urine HCG, Qual (Not Detectd) Coronavirus (PCR) Detected H (Not Detected) Influenza Type A RNA Not Detected (Not Detectd) Influenza Type B (PCR) Not Detected (Not Detectd) Disposition Clinical Impression: Myalgia, Vaginal yeast infection, Bacterial vaginal infection, Nausea Disposition: HOME SELF-CARE Condition: Stable Instructions (If sedation given, give patient instructions): Yeast Infection (ED) Additional Instructions: Please follow-up with your primary care doctor in regards to your symptoms. I encouraged fluid intake. We will call you with positive covid results. Return to the emergency room for any new or worsening symptoms Prescriptions: Fluconazole [Diflucan] 150 mg PO ONCE #1 tab metroNIDAZOLE [Flagyl] 500 mg PO BID #14 tab Is patient prescribed a controlled substance at d/c from ED?: No Referrals: Susu Horner MD [Primary Care Provider] - 1-2 days Time of Disposition: 17:14
[2020-07-10 17:35] LABS: Band Neutrophils % 1 %; Lymphocytes # (M) 1.68 k/uL (1.0-4.8); Monocytes # (M) 0.58 k/uL (0-1.0); Neutrophils % (M) 21 %; Nucleated Red Blood Cells 0 /100 WBC (0-0); Total Cells Counted 100
[2020-07-10 17:38] VITALS: BP 158/96; PULSE 98; RESP 18
== END 2020-07-10 17:38 | disposition home or self-care (01) ==
LOC: EC 14:47
DX: U07.1 COVID-19 (principal); N76.0 Acute vaginitis; B96.89 Other specified bacterial agents as the cause of diseases classified elsewhere; B37.3 Candidiasis of vulva and vagina; R11.0 Nausea; G89.29 Other chronic pain; M54.9 Dorsalgia, unspecified; D50.9 Iron deficiency anemia, unspecified; G40.909 Epilepsy, unspecified, not intractable, without status epilepticus; G43.909 Migraine, unspecified, not intractable, without status migrainosus; Z79.899 Other long term (current) drug therapy; Z88.8 Allergy status to other drugs, medicaments and biological substances; Z88.1 Allergy status to other antibiotic agents; Z88.0 Allergy status to penicillin; Z88.2 Allergy status to sulfonamides; Z86.73 Personal history of transient ischemic attack (TIA), and cerebral infarction without residual deficits
CPT/HCPCS: 36415; 80053; 85025; 81001; 81025; 87086; 87502; 99284; U0003; 87077; 87186

== ENCOUNTER 2021-09-28 22:31 | Emergency (ER) | payer MEDICARE, OTHER ==
[2021-09-28 22:47] VITALS: BP 159/99; PULSE 97; RESP 18; TEMP 98.7
--- NOTE | 2021-09-28 23:02 | ED ---
URI HPI - General Chief Complaint: Upper Respiratory Infection Stated Complaint: congestion Time Seen by Provider: 09/28/21 22:39 Source: patient, family, RN notes reviewed Mode of arrival: ambulatory Limitations: no limitations - History of Present Illness Initial Comments: Patient presents in respiratory complaint nasal congestion, intermittent headac hes, some fatigue, dry cough. Patient has been supposed to COVID-19 and her significant other. Patient denies any chest pain. No shortness of breath. No productive cough. No known fever. No change in vision or hearing. No neck pain. No skin rashes or lesions. No abdominal pain. No nausea or vomiting. No changes, to urination. No dizziness or lightheadedness. Patient is a nonsmoker. No alcohol or drug abuse. History of asthma and diabetes. Patient also has a history of pseudotumor cerebri. - Related Data Home Medications Medication Instructions Recorded Confirmed Hydrocodone/Acetaminophen [[place] 1 tab PO DAILY PRN 01/12/16 03/07/19 10-325] Eslicarbazepine Acetate [Aptiom] 400 mg PO BID 01/23/18 03/07/19 hydroCHLOROthiazide [Hydrodiuril] 25 mg PO DAILY PRN 01/23/18 03/07/19 Butalb/Acetaminophen/Caffeine 1 tab PO TID PRN 02/28/19 03/07/19 [Esgic 50-325-40 Capsule] Ergocalciferol (Vitamin D2) 50,000 unit PO DIRECTED 02/28/19 03/07/19 [Vitamin D2] Ferrous Sulfate [Iron] 325 mg PO DAILY 02/28/19 03/07/19 Galcanezumab-Gnlm [Emgality 120 mg SQ DIRECTED PRN 02/28/19 03/07/19 Syringe] Pnv No.95/Ferrous Fum/Folic AC 1 tab PO DAILY 02/28/19 03/07/19 [ Multivitamin Tablet] Previous Rx's Medication Instructions Recorded Fluconazole [Diflucan] 150 mg PO ONCE #1 tab 07/10/20 metroNIDAZOLE [Flagyl] 500 mg PO BID #14 tab 07/10/20 Allergies Allergy/AdvReac Type Severity Reaction Status Date / Time acetazolamide Allergy Rash/Hives/CHEST Verified 09/28/21 22:48 [From Diamox Sequels] PAIN cephalexin monohydrate Allergy Rash/Hives Verified 09/28/21 22:48 [From Keflex] ciprofloxacin [From Cipro] Allergy Rash/Hives Verified 09/28/21 22:48 ciprofloxacin HCl Allergy Rash/Hives Verified 09/28/21 22:48 [From Cipro] Penicillins Allergy Rash/Hives Verified 09/28/21 22:48 sulfamethoxazole Allergy Rash/Hives Verified 09/28/21 22:48 [From Bactrim] trimethoprim [From Bactrim] Allergy Rash/Hives Verified 09/28/21 22:48 Review of Systems ROS Statement: Those systems with pertinent positive or pertinent negative responses have been documented in the HPI. ROS Other: All systems not noted in ROS Statement are negative. Past Medical History Past Medical History: Asthma, Blood Disorder, CVA/TIA, Diabetes Mellitus, Seizure Disorder, Syncope Additional Past Medical History / Comment(s): HX MIGRAINES, "REDUCED SEIZURE THRESHOLD", PSEUDO TUMOR CEREBRI, CHRONIC BACK PAIN, POSSIBLE UMBILICAL HERNIA, bertolotti sydrome. IRON MICROCYTIC ANEMIA. History of Any Multi-Drug Resistant Organisms: None Reported Past Surgical History: Section Additional Past Surgical History / Comment(s): tilt table test 01/29/18. right fallopian tube removed, LEFT FALLOPIAN TUBE CLAMPED,. "tissue" removed from abd Past Anesthesia/Blood Transfusion Reactions: Postoperative Nausea & Vomiting (PONV) Additional Past Anesthesia/Blood Transfusion Reaction / Comment(s): STATES "TROUBLE WAKING UP" Past Psychological History: No Psychological Hx Reported Past Alcohol Use History: None Reported Past Drug Use History: None Reported - Past Family History Mother Family Medical History: No Reported History General Exam Limitations: no limitations General appearance: alert, in no apparent distress Head exam: Present: atraumatic, normocephalic, normal inspection Eye exam: Present: normal appearance, PERRL, EOMI. Absent: scleral icterus, conjunctival injection, periorbital swelling ENT exam: Present: normal exam, normal oropharynx, mucous membranes moist, normal external ear exam, other (Serous nasal discharge, airways patent, no tonsillar adenopathy or exudate) Neck exam: Present: normal inspection. Absent: tenderness, meningismus, lymph adenopathy Respiratory exam: Present: normal lung sounds bilaterally. Absent: respiratory distress, wheezes, rales, rhonchi, stridor Cardiovascular Exam: Present: regular rate, normal rhythm, normal heart sounds. Absent: systolic murmur, diastolic murmur, rubs, gallop, clicks GI/Abdominal exam: Present: soft, normal bowel sounds. Absent: distended, tenderness, guarding, rebound, rigid Extremities exam: Present: normal inspection, full ROM, normal capillary refill. Absent: tenderness, pedal edema, joint swelling, calf tenderness Back exam: Present: normal inspection Neurological exam: Present: alert, oriented X3, CN II-XII intact Psychiatric exam: Present: normal affect, normal mood Skin exam: Present: warm, dry, intact, normal color. Absent: rash Course Vital Signs 09/28/21 22:42 Temperature 98.7 F Pulse Rate 97 Respiratory 18 Rate Blood Pressure 159/99 O2 Sat by Pulse 99 Oximetry - Reevaluation(s) Reevaluation #1: 09/28/21 23:54 Patient reevaluated prior to discharge is resting comfortably. No distress. Oxygen saturation 99-100% on room air. Medical Decision Making - Medical Decision Making Patient presents a symptomology consistent with mild upper respiratory infection. However other upper respiratory viral infections are within the differential to include other coronavirus's,, cold, influenza less likely without a high fever. Patient is oxygen saturation is 100% on room air. No adventitious lung sounds. I do not believe the patient needs imaging at this time as her symptoms are consistent with a viral URI. The case was discussed in detail with ED attending physician. Presentation, findings, treatment plan discussed in detail. Patient was told to return to the ER for any signs or symptoms worsen. Told to return immediately if any other problems arise. All questions answered. Treatment plan discussed. Patient in agreement Patient's COVID-19 testing is negative. Discussed the possibility of other upper respiratory infections to include, cold, other coronavirus's, or other causes of viral upper respiratory disease. Patient told to return if any problems or difficulties arise. I did tell her without a positive tests we should not order the monoclonal antibody. Patient concurs with this treatment plan. All questions answered. - Lab Data Lab Results 09/28/21 Range/Units 22:50 Coronavirus (PCR) Not Detected (Not Detectd) Disposition Clinical Impression: Common cold, Viral infection Disposition: HOME SELF-CARE Instructions (If sedation given, give patient instructions): Upper Respiratory Infection (ED) Additional Instructions: Follow-up with your regular physician as directed. Return to the ER immediately if any symptoms worsen, new symptoms arise, or any other problems develop. Is patient prescribed a controlled substance at d/c from ED?: No Referrals: Susu Horner MD [Primary Care Provider] - 1-2 days Time of Disposition: 23:52
== END 2021-09-29 00:30 | disposition home or self-care (01) ==
LOC: EC 22:31
DX: B34.9 Viral infection, unspecified (principal); J00 Acute nasopharyngitis [common cold]; E11.9 Type 2 diabetes mellitus without complications; J45.909 Unspecified asthma, uncomplicated; Z20.822 Contact with and (suspected) exposure to COVID-19; Z88.0 Allergy status to penicillin; Z88.1 Allergy status to other antibiotic agents; Z88.2 Allergy status to sulfonamides; Z86.73 Personal history of transient ischemic attack (TIA), and cerebral infarction without residual deficits
CPT/HCPCS: 87635; 99284

== ENCOUNTER 2021-10-10 12:42 | Emergency (ER) | payer MEDICARE ==
[2021-10-10 13:12] VITALS: RESP 20; TEMP 99.3
--- NOTE | 2021-10-10 15:17 | ED ---
URI HPI - General Chief Complaint: Upper Respiratory Infection Stated Complaint: chest congestion Time Seen by Provider: 10/10/21 14:08 Source: patient, RN notes reviewed Mode of arrival: ambulatory Limitations: no limitations - History of Present Illness Initial Comments: Patient presents complaining of ongoing cough and some chest discomfort which has been present for 2 weeks. Patient was exposed to her who had COVID- 19. Patient still having some body aches. No fever or chills. No nausea or vomiting. No changes in vomitus urination. No chance of . Patient also exposed to 2 of her children who also had COVID-19. Patient has tested negative twice, once at the beginning of the illness, and once today. - Related Data Home Medications Medication Instructions Recorded Confirmed Hydrocodone/Acetaminophen [[place] 1 tab PO DAILY PRN 01/12/16 03/07/19 10-325] Eslicarbazepine Acetate [Aptiom] 400 mg PO BID 01/23/18 03/07/19 hydroCHLOROthiazide [Hydrodiuril] 25 mg PO DAILY PRN 01/23/18 03/07/19 Butalb/Acetaminophen/Caffeine 1 tab PO TID PRN 02/28/19 03/07/19 [Esgic 50-325-40 Capsule] Ergocalciferol (Vitamin D2) 50,000 unit PO DIRECTED 02/28/19 03/07/19 [Vitamin D2] Ferrous Sulfate [Iron] 325 mg PO DAILY 02/28/19 03/07/19 Galcanezumab-Gnlm [Emgality 120 mg SQ DIRECTED PRN 02/28/19 03/07/19 Syringe] Pnv No.95/Ferrous Fum/Folic AC 1 tab PO DAILY 02/28/19 03/07/19 [ Multivitamin Tablet] Previous Rx's Medication Instructions Recorded Fluconazole [Diflucan] 150 mg PO ONCE #1 tab 07/10/20 metroNIDAZOLE [Flagyl] 500 mg PO BID #14 tab 07/10/20 Allergies Allergy/AdvReac Type Severity Reaction Status Date / Time acetazolamide Allergy Rash/Hives/CHEST Verified 10/10/21 13:09 [From Diamox Sequels] PAIN cephalexin monohydrate Allergy Rash/Hives Verified 10/10/21 13:09 [From Keflex] ciprofloxacin [From Cipro] Allergy Rash/Hives Verified 10/10/21 13:09 ciprofloxacin HCl Allergy Rash/Hives Verified 10/10/21 13:09 [From Cipro] Penicillins Allergy Rash/Hives Verified 10/10/21 13:09 sulfamethoxazole Allergy Rash/Hives Verified 10/10/21 13:09 [From Bactrim] trimethoprim [From Bactrim] Allergy Rash/Hives Verified 10/10/21 13:09 Review of Systems ROS Statement: Those systems with pertinent positive or pertinent negative responses have been documented in the HPI. ROS Other: All systems not noted in ROS Statement are negative. Past Medical History Past Medical History: Asthma, Blood Disorder, CVA/TIA, Diabetes Mellitus, Seizure Disorder, Syncope Additional Past Medical History / Comment(s): HX MIGRAINES, "REDUCED SEIZURE THRESHOLD", PSEUDO TUMOR CEREBRI, CHRONIC BACK PAIN, POSSIBLE UMBILICAL HERNIA, bertolotti sydrome. IRON MICROCYTIC ANEMIA. History of Any Multi-Drug Resistant Organisms: None Reported Past Surgical History: Section Additional Past Surgical History / Comment(s): tilt table test 01/29/18. right fallopian tube removed, LEFT FALLOPIAN TUBE CLAMPED,. "tissue" removed from abd Past Anesthesia/Blood Transfusion Reactions: Postoperative Nausea & Vomiting (PONV) Additional Past Anesthesia/Blood Transfusion Reaction / Comment(s): STATES "TROUBLE WAKING UP" Past Psychological History: No Psychological Hx Reported Smoking Status: Never smoker Past Alcohol Use History: None Reported Past Drug Use History: None Reported - Past Family History Mother Family Medical History: No Reported History General Exam - General Exam Comments Initial Comments: Patient does not appear to be in any distress. Vital signs stable, patient afebrile. Limitations: no limitations General appearance: alert, in no apparent distress Head exam: Present: atraumatic, normocephalic, normal inspection Eye exam: Present: normal appearance, PERRL, EOMI. Absent: scleral icterus, conjunctival injection, periorbital swelling ENT exam: Present: normal exam, mucous membranes moist Neck exam: Present: normal inspection. Absent: tenderness, meningismus, lymphadenopathy Respiratory exam: Present: normal lung sounds bilaterally. Absent: respiratory distress, wheezes, rales, rhonchi, stridor Cardiovascular Exam: Present: regular rate, normal rhythm, normal heart sounds. Absent: systolic murmur, diastolic murmur, rubs, gallop, clicks GI/Abdominal exam: Present: soft, normal bowel sounds. Absent: distended, tenderness, guarding, rebound, rigid Extremities exam: Present: normal inspection, full ROM, normal capillary refill. Absent: tenderness, pedal edema, joint swelling, calf tenderness Back exam: Present: normal inspection Neurological exam: Present: alert, oriented X3, CN II-XII intact Psychiatric exam: Present: normal affect, normal mood Skin exam: Present: warm, dry, intact, normal color. Absent: rash Course Vital Signs 10/10/21 13:09 Temperature 99.3 F Pulse Rate 99 Respiratory 20 Rate Blood Pressure 131/87 O2 Sat by Pulse 99 Oximetry Medical Decision Making - Medical Decision Making Patient presented with ongoing symptoms or COVID-19 with some chest discomfort. EKG was normal. Troponin was negative. Case discussed in detail with the ED attending physician, Dr. Montaño. Follow-up with your regular physician as directed. Return to the ER immediately if any symptoms worsen, new symptoms arise, or any other problems develop. She was counseled on quarantine measures as she is still symptomatic. She should still wear a mask until symptoms have resolved. - Lab Data Lab Results 10/10/21 10/10/21 Range/Units 13:12 15:16 Troponin I <0.012 (0.000-0.034) ng/mL Coronavirus (PCR) Not Detected (Not Detectd) - EKG Data -: EKG Interpreted by Me EKG shows normal: sinus rhythm EKG Comments: EKG done at 1320 and regular ED attending physician reveals normal sinus rhythm with a rate of 86. Normal intervals. Normal axis. No acute ST or T-wave changes. Disposition Clinical Impression: Suspected COVID-19 virus infection, Chest wall pain Disposition: HOME SELF-CARE Condition: Good Instructions (If sedation given, give patient instructions): Chest Wall Pain (ED) Additional Instructions: SELF QUARANTINE DISCHARGE: As you are at risk for symptoms due to coronavirus, please stay home and stay away from others as much as possible. Please maintain social distance of 6 feet if possible. You should not return to work until at least 3 days (72 hours) have passed since recovery of symptoms. This defined as resolution of fever without the use of fever reducing medicines and improvement in respiratory symptoms (e.g,, cough, shortness of breath) Isolation can end at least 5 days after symptom onset and after fever ends for 24 hours (without the use of fever-reducing medication) and symptoms are improving, if these people can continue to properly wear a well-fitted mask around others for 5 more days after the 5-day isolation period. If you're still having symptoms at the end of 5 day period, isolate for an additional 5 days. More information about what to do if you are sick can be found on the CDC website at https: //www.cdc.gov/coronavirus/2019-ncov/hk-jyb-hbz-sick/kxhcu-yizb-ngyq.html Expect the symptoms to last for 7-14 days from onset. Use acetaminophen (Tylenol) as needed for discomfort. You can take a maximum of 1 gram every 6 hours for discomfort, with your total dose in 24 hours not exceeding 4 grams. Be sure to maintain hydration. Drink continuous water and/or items high in vitamin C, such as orange juice and/or lemonade. Unless you have high blood pressure, you may consider Sudafed (which is [id number]) for nasal congestion. I would suggest that a short acting Sudafed rather than the 24 hour Sudafed. For a cough you may take Mucinex or Robitussin. Also consider the use of Vicks Vapor Rub or your chest when you sleep. Use a humidifier that is cleaned frequently, in the bedroom at night. For Nausea /Vomiting/Diarrhea associated with your Illness: o Small frequent sips of room temperature liquids. o Diet: Mica Foods - If you are still experiencing discomfort and/or nausea please slowly advancing your diet using the BRAT Diet = bananas, rice, apples/apple sauce, toast. o With diarrhea avoid any dairy for 48 hours after symptoms resolved. o Continue with activity as tolerated. If your symptoms do get worse and you believe that the upper respiratory infection has developed into something else, such as pneumonia or severe dehydration, please return to the emergency department or follow-up with your primary care. But expect to be symptomatic for the days as indicated above Is patient prescribed a controlled substance at d/c from ED?: No Referrals: Susu Horner MD [Primary Care Provider] - 1-2 days
--- NOTE | 2021-10-10 15:37 | XR ---
EXAMINATION TYPE: XR chest 2V DATE OF EXAM: 10/10/2021 COMPARISON: 12/13/2018 INDICATION: Chest pain TECHNIQUE: Single frontal view of the chest is obtained. FINDINGS: The heart size is normal. The pulmonary vasculature is normal. The lungs are clear. IMPRESSION: 1. No acute pulmonary process.
[2021-10-10 16:10] VITALS: BP 168/85; PULSE 86
== END 2021-10-10 16:10 | disposition home or self-care (01) ==
LOC: EC 12:42
DX: R07.89 Other chest pain (principal); Z20.822 Contact with and (suspected) exposure to COVID-19; J45.909 Unspecified asthma, uncomplicated; E11.9 Type 2 diabetes mellitus without complications; G40.909 Epilepsy, unspecified, not intractable, without status epilepticus; Z86.73 Personal history of transient ischemic attack (TIA), and cerebral infarction without residual deficits; G43.909 Migraine, unspecified, not intractable, without status migrainosus
CPT/HCPCS: 36415; 71046; 84484; 87635; 93005; 99285

== ENCOUNTER → 2022-04-21 | Outpatient (CLI) | payer MEDICARE, OTHER ==
[2022-04-21 12:24] LABS: African American GFR (CKD) >90 (>60 ml/min/1.73 sqM); Blood Urea Nitrogen 10 mg/dL (7-17); Non-African American GFR(CKD) >90 (>60 ml/min/1.73 sqM)
--- NOTE | 2022-04-21 14:07 | CT ---
EXAMINATION TYPE: CT abdomen pelvis w con DATE OF EXAM: 04/21/2022 COMPARISON: 02/10/2018 INDICATION: LLQ pain DLP: 1648.20 mGycm, Automated exposure control for dose reduction was used. CONTRAST: 100 mL of Isovue 300. Study performed with Oral Contrast TECHNIQUE: Axial images were obtained from above the diaphragm to the pubic rami in the axial plane a t 5 mm thick sections. Reconstructed images are reviewed on the computer in the coronal plane. FINDINGS: Limited CT sections are obtained the lung bases. The lung bases are clear. CT ABDOMEN: Liver: Normal Spleen: Normal Pancreas: Normal Adrenal glands: The adrenal glands are normal. Gallbladder: Normal Kidneys: No masses are evident. No hydronephrosis is present. No cysts are present. Delayed images were obtained through the kidneys, which remain unremarkable. Aorta: Normal Inferior vena cava: Normal. CT PELVIS: Loops of bowel within the abdomen and pelvis are normal. Fecal bolus in the rectum. No suspicious inf lammatory changes adjacent to the loops of bowel are. There are loops of bowel which are incomplet eulalio distended or lack oral contrast limiting their evaluation. Appendix: Not identified. No dilated tubular structure or inflammatory changes evident. Urinary bladder: Decompressed limiting evaluation. Genitourinary structures: Uterus appears normal. Adnexal regions are normal. Osseous structures: No suspicious lytic or sclerotic lesions. IMPRESSIONS: 1. No suspicious abnormalities to account for left lower quadrant pain.
== END | disposition home or self-care (01) ==
LOC: RADCTMAIN 11:36
PROVIDERS: ATTEND Family Medicine
DX: R19.4 Change in bowel habit (principal)
CPT/HCPCS: 82565; 84520; 74177; 36415; Q9967